=== PATIENT | male | born 1945 | race African-American/Black ===

== ENCOUNTER 2017-04-15 17:57 | Inpatient (IN) | payer MEDICARE ==
[2017-04-15 19:13] LABS: HEMATOCRIT 40.7 % (37.9-51.0); HEMOGLOBIN 13.3 g/dL (13.5-17.0); HGB HCT DIFFERENCE -0.8; MEAN CORPUSCULAR HGB CONC 32.6 g/dL (32.0-36.0); MEAN CORPUSCULAR VOLUME 89 fl (80-97); RED BLOOD COUNT 4.57 10^6/uL (4.35-5.55); RED CELL DISTRIBUTION WIDTH 15.2 % (11.5-14.0); WHITE BLOOD COUNT 4.6 10^3/uL (4.0-10.5)
[2017-04-15 19:30] LABS: ALANINE AMINOTRANSFERASE 30 U/L (21-72); ALBUMIN 4.1 g/dL (3.5-5.0); ALKALINE PHOSPHATASE 73 U/L (38-126); ANION GAP 14 (5-19); ASPARTATE AMINO TRANSFERASE 36 U/L (17-59); BILIRUBIN,DIRECT 0.4 mg/dL (0.0-0.4); BILIRUBIN,TOTAL 0.5 mg/dL (0.2-1.3); BLOOD UREA NITROGEN 21 mg/dL (7-20); CALCIUM 8.9 mg/dL (8.4-10.2); CARBON DIOXIDE 24 mmol/L (22-30); CHLORIDE 101 mmol/L (98-107); CREATININE RESULT 1.85 mg/dL (0.52-1.25); GLUCOSE 110 mg/dL (75-110); POTASSIUM 4.5 mmol/L (3.6-5.0); SODIUM 138.8 mmol/L (137-145); TOTAL PROTEIN 8.2 g/dL (6.3-8.2)
[2017-04-15] MEDS: IPRATROPIUM/ALBUTEROL 0.5-2.5 MG/3 ML AMPUL NEB SCH ×2 (20:33→22:10)
[2017-04-15] MEDS ORDERED: GLUCAGON,HUMAN RECOMB 1 MG INJ IM PRN ×2 (20:54)
[2017-04-15] MEDS ORDERED: DEXTROSE 40% GEL 15 GM TUBE PO PRN ×4 (20:54)
[2017-04-15] MEDS ORDERED: DEXTROSE 50%-WATER 25 GM/50 ML DISP.SYRIN IV PRN ×4 (20:54)
--- NOTE | 2017-04-15 21:47 | RADIOLOGY REPORT (SQ) ---
EXAM DESCRIPTION: CT CHEST WITHOUT COMPLETED DATE/TIME: 04/15/2017 9:33 pm REASON FOR STUDY: ACUTE HYPOXEMIC COMPARISON: No recent chest x-ray. 07/03/2015 TECHNIQUE: CT scan performed of the chest without intravenous contrast. Images reviewed with lung, soft tissue and bone windows. Reconstructed coronal and sagittal MPR images reviewed. All images st ored on PACS. All CT scanners at this facility use dose modulation, iterative reconstruction, and/or weight based d osing when appropriate to reduce radiation dose to as low as reasonably achievable (ALARA). [facility]: Dose Right [facility]: CareDose [facility]: Dose Right [facility]: Teradose 4D [facility]: [employer] RADIATION DOSE: Up-to-date CT equipment and radiation dose reduction techniques were employed. CTDIv ol: 19.0 mGy. DLP: 771 mGy-cm. mGy. LIMITATIONS: No technical limitations. FINDINGS: LUNGS AND PLEURA: Bullous emphysema. No opacities. No effusions. HILAR AND MEDIASTINAL STRUCTURES: No identified masses or abnormal nodes. No obvious aneurysm. HEART AND VASCULAR STRUCTURES: No aneurysm. No pericardial effusion. UPPER ABDOMEN: Gallstones. THYROID AND OTHER SOFT TISSUES: No masses. No adenopathy. BONES: No significant finding. HARDWARE: None in the chest. OTHER: No other significant findings. IMPRESSION: Bullous emphysema. No acute findings. TECHNICAL DOCUMENTATION: JOB ID: [id number] Quality ID # [id number]: Final reports with documentation of one or more dose reduction techniques (e.g., Au tomated exposure control, adjustment of the mA and/or kV according to patient size, use of iterative reconstruction technique) 2010 [employer]- All Rights Reserved
[2017-04-15] MEDS ORDERED: CEFEPIME HCL 1 GM in DEXTROSE 5%-WATER 50 ML IV ONE (22:00)
[2017-04-15 22:04] LABS: PARTIAL THROMBOPLASTIN TIME 27.1 SEC (23.5-35.8); PROTHROMBIN TIME 13.3 SEC (11.4-15.4)
[2017-04-15 22:19] LABS: ARTERIAL BLOOD BASE EXCESS 0.1 mmol/L; ARTERIAL BLOOD O2 SATURATION 96.6 % (94-98)
[2017-04-15] MEDS: HEPARIN SOD (PORCINE) 5,000 UNIT/ML 1 ML SYRINGE SUBCUT SCH (23:04)
[2017-04-15] MEDS: NORMAL SALINE 1000 ML 1,000 ML IV PRN (23:12)
[2017-04-15] MEDS ORDERED: METHYLPREDNISOLONE INJ 125 MG/2 ML SDV IV ONE (23:30)
[2017-04-16] MEDS: IPRATROPIUM/ALBUTEROL 0.5-2.5 MG/3 ML AMPUL NEB SCH ×9 (00:14→16:02)
[2017-04-16 03:57] LABS: APPEARANCE,URINE CLEAR; BILIRUBIN,URINE NEGATIVE (NEGATIVE); GLUCOSE, URINE NEGATIVE (NEGATIVE); KETONES,URINE NEGATIVE (NEGATIVE); LEUKOCYTE ESTERASE,URINE NEGATIVE (NEGATIVE); NITRITE,URINE NEGATIVE (NEGATIVE); PROTEIN,URINE NEGATIVE (NEGATIVE); URINE SPECIFIC GRAVITY 1.013; UROBILINOGEN,URINE NEGATIVE mg/dL (<2.0)
[2017-04-16] MEDS: HEPARIN SOD (PORCINE) 5,000 UNIT/ML 1 ML SYRINGE SUBCUT SCH ×3 (05:43→21:57)
[2017-04-16] MEDS: METHYLPREDNISOLONE INJ 125 MG/2 ML SDV IV SCH ×3 (05:43→21:52)
--- NOTE | 2017-04-16 08:44 | PDOC H&P ---
History of Present Illness Admission Date/PCP: 04/15/17 17:57 FLAQUITO LOCKE MD History of Present Illness: LORRAINE MAHAN is a 72 year old man, He came to the office for evaluation of shortness of breath, wheezing, cough. He was seen and evaluated in the in the office. The oxygen saturation was 86% on the digital pulse oximetry. The blood gas on FiO2 of 2 L, PO2 was 89.[address] chest was done , it showed bullous emphysema. Patient continued to smoke cigarettes despite COPD, he has multiple comorbid conditions including type 2 diabetes mellitus, chronic kidney disease stage III. Past Medical History Cardiac Medical History: Reports: Coronary Artery Disease, Hypertension Pulmonary Medical History: Reports: Chronic Obstructive Pulmonary Disease (COPD) Endocrine Medical History: Reports: Diabetes Mellitus Type 2 Social History Smoking Status: Current Every Day Smoker Cigarettes Packs Per Day: 2 Number of Years Smokin Last Time Smoked: 04/11/17 Frequency of Alcohol Use: None Hx Recreational Drug Use: No Drugs: None Hx Prescription Drug Abuse: No Family History Family History: Reviewed & Not Pertinent Parental Family History Reviewed: Yes Children Family History Reviewed: Yes Sibling(s) Family History Reviewed.: Yes Medication/Allergy Allergies/Adverse Reactions: No Known Allergies Allergy (Verified 07/03/15 10:19) Review of Systems Constitutional: PRESENT: headache(s) Eyes: ABSENT: visual disturbances Ears: ABSENT: hearing changes Cardiovascular: PRESENT: chest pain Respiratory: PRESENT: cough Gastrointestinal: ABSENT: abdominal pain, constipation, diarrhea, hematemesis, hematochezia, nausea, vomiting Genitourinary: ABSENT: dysuria, hematuria Musculoskeletal: ABSENT: joint swelling Integumentary: ABSENT: rash, wounds Neurological: ABSENT: abnormal gait, abnormal speech, confusion, dizziness, focal weakness, syncope Psychiatric: ABSENT: anxiety, depression, homidical ideation, suicidal ideation Endocrine: ABSENT: cold intolerance, heat intolerance, menstrual abnormalities, polydipsia, polyuria Hematologic/Lymphatic: ABSENT: easy bleeding, easy bruising, lymphadenopathy Physical Exam Vital Signs: Temp Pulse Resp BP Pulse Ox 98.5 F 82 18 138/66 H 88 L 04/16/17 07:22 04/16/17 08:01 04/16/17 08:01 04/16/17 07:22 04/16/17 08:01 Intake & Output 0704/16/17 04/17/17 06:59 06:59 06:59 Intake Total 890 Output Total 200 Balance 690 Weight 103.5 kg General appearance: PRESENT: severe distress Head exam: PRESENT: atraumatic, normocephalic Eye exam: PRESENT: PERRLA Ear exam: PRESENT: normal external ear exam Mouth exam: PRESENT: moist, tongue midline Neck exam: PRESENT: full ROM Respiratory exam: PRESENT: wheezes Cardiovascular exam: PRESENT: RRR Vascular exam: PRESENT: normal capillary refill GI/Abdominal exam: PRESENT: normal bowel sounds, soft Rectal exam: PRESENT: deferred Neurological exam: PRESENT: alert, awake, oriented to person, oriented to place , oriented to time, oriented to situation, CN II-XII grossly intact Psychiatric exam: PRESENT: appropriate affect, normal mood Skin exam: PRESENT: dry, intact, warm Results Laboratory Results: 04/15/17 19:00 04/15/17 19:00 04/15/17 04/15/17 04/15/17 19:00 19:00 19:10 WBC 4.6 RBC 4.57 Hgb 13.3 L Hct 40.7 MCV 89 MCH 29.0 MCHC 32.6 RDW 15.2 H Plt Count 181 Carbonic Acid 1.34 HCO3/H2CO3 Ratio 19:1 ABG pH 7.38 ABG pCO2 44.4 ABG pO2 89.1 ABG HCO3 25.6 ABG O2 Saturation 96.6 ABG Base Excess 0.1 FiO2 2L Sodium 138.8 Potassium 4.5 Chloride 101 Carbon Dioxide 24 Anion Gap 14 BUN 21 H Creatinine 1.85 H Est GFR ( Amer) 43 L Est GFR (Non-Af Amer) 36 L Glucose 110 Calcium 8.9 Total Bilirubin 0.5 AST 36 ALT 30 Alkaline Phosphatase 73 Total Protein 8.2 Albumin 4.1 Urine Color Urine Appearance Urine pH Ur Specific [place] Urine Protein Urine Glucose (UA) Urine Ketones Urine Blood Urine Nitrite Ur Leukocyte Esterase Urine WBC (Auto) Urine RBC (Auto) 04/16/17 03:35 WBC RBC Hgb Hct MCV MCH MCHC RDW Plt Count Carbonic Acid HCO3/H2CO3 Ratio ABG pH ABG pCO2 ABG pO2 ABG HCO3 ABG O2 Saturation ABG Base Excess FiO2 Sodium Potassium Chloride Carbon Dioxide Anion Gap BUN Creatinine Est GFR ( Amer) Est GFR (Non-Af Amer) Glucose Calcium Total Bilirubin AST ALT Alkaline Phosphatase Total Protein Albumin Urine Color YELLOW Urine Appearance CLEAR Urine pH 5.0 Ur Specific [place] 1.013 Urine Protein NEGATIVE Urine Glucose (UA) NEGATIVE Urine Ketones NEGATIVE Urine Blood NEGATIVE Urine Nitrite NEGATIVE Ur Leukocyte Esterase NEGATIVE Urine WBC (Auto) 0 Urine RBC (Auto) 0 Impressions: Chest CT 04/15/17 00:00 IMPRESSION: Bullous emphysema. No acute findings. Assessment & Plan - Diagnosis (1) Acute hypoxemic respiratory failure Is this a current diagnosis for this admission?: YesPlan: Patient does not presently require noninvasive positive pressure ventilation, he is presently on oxygen via nasal cannula at 2 L/min this seems to maintain adequate oxygenation (2) Chronic obstructive pulmonary disease with (acute) exacerbation Is this a current diagnosis for this admission?: YesPlan: He has COPD with acute exacerbation, CT scan did not suggest any acute infiltrate to suggest pneumonia, he be treated with IV Solu-Medrol, bronchodilators with DuoNeb every 2 hours, antibiotic (3) Chronic kidney disease, stage 3 Is this a current diagnosis for this admission?: Yes (4) Diabetes mellitus Qualifiers: Diabetes mellitus type: type 2 Diabetes mellitus complication status: with kidney complications Diabetes mellitus complication detail: with microalbuminuria Diabetes mellitus terminal gauger supervisor insulin use: without assisted use Qualified Code(s): E11.29 - Type 2 diabetes mellitus with other diabetic kidney complication; R80.9 - Proteinuria, unspecified Is this a current diagnosis for this admission?: Yes
[2017-04-16] MEDS: INSULIN LISPRO 100 UNIT/ML 3 ML VIAL SUBCUT PRN ×3 (09:52→22:20)
[2017-04-16] MEDS ORDERED: (PENDING PHARMACY ID) (Linagliptin [Tradjenta] 5 MG) PO SCH (10:00)
[2017-04-16] MEDS ORDERED: SIMVASTATIN 40 MG TABLET PO SCH (10:00)
[2017-04-16] MEDS ORDERED: (PENDING PHARMACY ID) (Lisinopril/Hydrochlorothiazide [Zestoretic 20-25 Mg Tablet] 1 TAB) PO SCH (10:00)
[2017-04-16] MEDS: LISINOPRIL 10 MG TABLET PO SCH (10:37)
[2017-04-16] MEDS: ASPIRIN 81 MG TABLET, ENT COATED PO SCH (10:38)
[2017-04-16] MEDS: METOPROLOL TARTRATE 50 MG TABLET PO SCH ×2 (10:38→21:52)
[2017-04-16] MEDS: NICOTINE 21 MG/24 HR PATCH.TD24 TD PRN (10:39)
[2017-04-16] MEDS: HYDROCHLOROTHIAZIDE 25 MG TABLET PO SCH (10:39)
[2017-04-16] MEDS: TERBINAFINE HCL 250 MG TABLET PO SCH (10:39)
[2017-04-16] MEDS: SITAGLIPTIN PHOSPHATE 50 MG TABLET PO SCH (10:39)
[2017-04-16] MEDS: CEFEPIME HCL 1 GM in DEXTROSE 5%-WATER 50 ML IV SCH (10:40)
[2017-04-16] MEDS ORDERED: LEVOFLOXACIN 750 MG/D5W RTU 750 MG/150 ML RTUPB IV SCH (12:00)
--- NOTE | 2017-04-16 12:52 | EKG REPORT ---
SEVERITY:- OTHERWISE NORMAL ECG - SINUS RHYTHM BORDERLINE RIGHT AXIS DEVIATION : Confirmed by: Sandi Acosta MD 16-Apr-2017 12:51:36
[2017-04-16 13:01] LABS: ABSOLUTE LYMPHOCYTES (AUTO) 0.4 10^3/uL (0.5-4.7); ABSOLUTE MONOCYTES (AUTO) 0.1 10^3/uL (0.1-1.4); ABSOLUTE NEUT (AUTO) 3.1 10^3/uL (1.7-8.2); BASOPHILS % (AUTO) 0.4 % (0-2); HEMATOCRIT 37.7 % (37.9-51.0); HEMOGLOBIN 12.5 g/dL (13.5-17.0); HGB HCT DIFFERENCE -0.2; LYMPHOCYTES % (AUTO) 10.5 % (13-45); MEAN CORPUSCULAR HEMOGLOBIN 29.2 pg (27.0-33.4); MEAN CORPUSCULAR HGB CONC 33.2 g/dL (32.0-36.0); MEAN CORPUSCULAR VOLUME 88 fl (80-97); MONOCYTES % (AUTO) 2.2 % (3-13); RED BLOOD COUNT 4.29 10^6/uL (4.35-5.55); RED CELL DISTRIBUTION WIDTH 15.3 % (11.5-14.0); SEGMENTED NEUTROPHILS % (AUTO) 86.9 % (42-78); WHITE BLOOD COUNT 3.6 10^3/uL (4.0-10.5)
[2017-04-16 13:13] LABS: ALANINE AMINOTRANSFERASE 29 U/L (21-72); ALBUMIN 3.7 g/dL (3.5-5.0); ALKALINE PHOSPHATASE 59 U/L (38-126); ANION GAP 15 (5-19); ASPARTATE AMINO TRANSFERASE 32 U/L (17-59); BILIRUBIN,DIRECT 0.3 mg/dL (0.0-0.4); BILIRUBIN,TOTAL 0.3 mg/dL (0.2-1.3); BLOOD UREA NITROGEN 22 mg/dL (7-20); CALCIUM 8.6 mg/dL (8.4-10.2); CARBON DIOXIDE 22 mmol/L (22-30); CHLORIDE 101 mmol/L (98-107); CREATININE RESULT 1.71 mg/dL (0.52-1.25); GLUCOSE 232 mg/dL (75-110); POTASSIUM 4.4 mmol/L (3.6-5.0); SODIUM 137.5 mmol/L (137-145); TOTAL PROTEIN 7.6 g/dL (6.3-8.2)
[2017-04-16] MEDS: NORMAL SALINE 1000 ML 1,000 ML IV PRN (14:42)
--- NOTE | 2017-04-16 17:59 | PDOC PROGRESS REPORT ---
Subjective Progress Note for:: 04/16/17 Subjective:: Patient was seen by the bedside, he was admitted yesterday for management of acute hypoxemic respiratory failure due to COPD exacerbation. Patient is still very symptomatic with audible wheeze with unaided ears. Patient is expected to stay more than 2 midnight he will require continuous uninterrupted intravenous Solu-Medrol for 72 hours. He has multiple comorbid conditions including chronic kidney disease stage 3, severe bullous emphysema, obesity with body mass index 36.8, tobacco abuse and sedentary lifestyle. He is also on intravenous antibiotic, cefepime and Levaquin because he was coughing up yellow sputum. It will be on unwise to admit this patient observation, he has the risks to progress rapidly to fulminant respiratory failure requiring mechanical ventilation. Physical Exam Vital Signs: Temp Pulse Resp BP Pulse Ox 98.6 F 78 20 114/61 100 04/16/17 15:49 04/16/17 16:02 04/16/17 16:02 04/16/17 15:49 04/16/17 16:02 Intake & Output 04/15/17 04/16/17 04/17/17 06:59 06:59 06:59 Intake Total 890 237 Output Total 200 200 Balance 690 37 Weight 103.5 kg General appearance: PRESENT: mild distress Eye exam: PRESENT: PERRLA Respiratory exam: PRESENT: retraction, tachypnea, wheezes Cardiovascular exam: PRESENT: +S1, +S2 GI/Abdominal exam: PRESENT: soft Neurological exam: PRESENT: alert, CN II-XII grossly intact Results Laboratory Results: 04/16/17 12:31 04/16/17 12:31 04/15/17 04/15/17 04/15/17 19:00 19:00 19:10 WBC 4.6 RBC 4.57 Hgb 13.3 L Hct 40.7 MCV 89 MCH 29.0 MCHC 32.6 RDW 15.2 H Plt Count 181 Seg Neutrophils % Lymphocytes % Monocytes % Eosinophils % Basophils % Absolute Neutrophils Absolute Lymphocytes Absolute Monocytes Absolute Eosinophils Absolute Basophils Carbonic Acid 1.34 HCO3/H2CO3 Ratio 19:1 ABG pH 7.38 ABG pCO2 44.4 ABG pO2 89.1 ABG HCO3 25.6 ABG O2 Saturation 96.6 ABG Base Excess 0.1 FiO2 2L Sodium 138.8 Potassium 4.5 Chloride 101 Carbon Dioxide 24 Anion Gap 14 BUN 21 H Creatinine 1.85 H Est GFR ( Amer) 43 L Est GFR (Non-Af Amer) 36 L Glucose 110 Calcium 8.9 Total Bilirubin 0.5 AST 36 ALT 30 Alkaline Phosphatase 73 Total Protein 8.2 Albumin 4.1 Urine Color Urine Appearance Urine pH Ur Specific [place] Urine Protein Urine Glucose (UA) Urine Ketones Urine Blood Urine Nitrite Ur Leukocyte Esterase Urine WBC (Auto) Urine RBC (Auto) 04/16/17 04/16/17 04/16/17 03:35 12:31 12:31 WBC 3.6 L RBC 4.29 L Hgb 12.5 L Hct 37.7 L MCV 88 MCH 29.2 MCHC 33.2 RDW 15.3 H Plt Count 174 Seg Neutrophils % 86.9 H Lymphocytes % 10.5 L Monocytes % 2.2 L Eosinophils % 0.0 Basophils % 0.4 Absolute Neutrophils 3.1 Absolute Lymphocytes 0.4 L Absolute Monocytes 0.1 Absolute Eosinophils 0.0 Absolute Basophils 0.0 Carbonic Acid HCO3/H2CO3 Ratio ABG pH ABG pCO2 ABG pO2 ABG HCO3 ABG O2 Saturation ABG Base Excess FiO2 Sodium 137.5 Potassium 4.4 Chloride 101 Carbon Dioxide 22 Anion Gap 15 BUN 22 H Creatinine 1.71 H Est GFR ( Amer) 48 L Est GFR (Non-Af Amer) 39 L Glucose 232 H Calcium 8.6 Total Bilirubin 0.3 AST 32 ALT 29 Alkaline Phosphatase 59 Total Protein 7.6 Albumin 3.7 Urine Color YELLOW Urine Appearance CLEAR Urine pH 5.0 Ur Specific [place] 1.013 Urine Protein NEGATIVE Urine Glucose (UA) NEGATIVE Urine Ketones NEGATIVE Urine Blood NEGATIVE Urine Nitrite NEGATIVE Ur Leukocyte Esterase NEGATIVE Urine WBC (Auto) 0 Urine RBC (Auto) 0 Impressions: Chest CT 04/15/17 00:00 IMPRESSION: Bullous emphysema. No acute findings. Assessment & Plan - Diagnosis (1) Acute hypoxemic respiratory failure Is this a current diagnosis for this admission?: YesPlan: He will continue present oxygen therapy via nasal cannula (2) Chronic obstructive pulmonary disease with (acute) exacerbation Is this a current diagnosis for this admission?: YesPlan: We will continue present treatment with IV antibiotic, bronchodilators. (3) Chronic kidney disease, stage 3 Is this a current diagnosis for this admission?: Yes (4) Diabetes mellitus Qualifiers: Diabetes mellitus type: type 2 Diabetes mellitus complication status: with kidney complications Diabetes mellitus complication detail: with microalbuminuria Diabetes mellitus residential insulin use: without residential use Qualified Code(s): E11.29 - Type 2 diabetes mellitus with other diabetic kidney complication; R80.9 - Proteinuria, unspecified; Z79.4 - detention (current) use of insulin Is this a current diagnosis for this admission?: Yes
[2017-04-16] MEDS: SIMVASTATIN 40 MG TABLET PO SCH (21:52)
[2017-04-17] MEDS: IPRATROPIUM/ALBUTEROL 0.5-2.5 MG/3 ML AMPUL NEB PRN ×4 (00:08→23:15)
[2017-04-17] MEDS: METHYLPREDNISOLONE INJ 125 MG/2 ML SDV IV SCH ×3 (05:21→22:32)
[2017-04-17] MEDS: HEPARIN SOD (PORCINE) 5,000 UNIT/ML 1 ML SYRINGE SUBCUT SCH ×3 (05:21→23:17)
[2017-04-17] MEDS: NORMAL SALINE 1000 ML 1,000 ML IV PRN ×2 (05:22→20:06)
[2017-04-17 06:45] LABS: ABSOLUTE MONOCYTES (AUTO) 0.5 10^3/uL (0.1-1.4); ABSOLUTE NEUT (AUTO) 11.1 10^3/uL (1.7-8.2); BASOPHILS % (AUTO) 0.3 % (0-2); EOSINOPHILS % (AUTO) 0.1 % (0-6); HEMATOCRIT 36.7 % (37.9-51.0); HEMOGLOBIN 12.1 g/dL (13.5-17.0); HGB HCT DIFFERENCE -0.4; LYMPHOCYTES % (AUTO) 7.9 % (13-45); MEAN CORPUSCULAR HGB CONC 33.1 g/dL (32.0-36.0); MEAN CORPUSCULAR VOLUME 88 fl (80-97); MONOCYTES % (AUTO) 4.2 % (3-13); RED BLOOD COUNT 4.18 10^6/uL (4.35-5.55); RED CELL DISTRIBUTION WIDTH 14.9 % (11.5-14.0); SEGMENTED NEUTROPHILS % (AUTO) 87.5 % (42-78)
[2017-04-17 06:46] LABS: WHITE BLOOD COUNT 12.6 10^3/uL (4.0-10.5)
[2017-04-17 07:00] LABS: ALANINE AMINOTRANSFERASE 32 U/L (21-72); ALBUMIN 3.2 g/dL (3.5-5.0); ALKALINE PHOSPHATASE 53 U/L (38-126); ANION GAP 12 (5-19); ASPARTATE AMINO TRANSFERASE 37 U/L (17-59); BILIRUBIN,DIRECT 0.4 mg/dL (0.0-0.4); BILIRUBIN,TOTAL 0.4 mg/dL (0.2-1.3); BLOOD UREA NITROGEN 36 mg/dL (7-20); CALCIUM 8.3 mg/dL (8.4-10.2); CARBON DIOXIDE 21 mmol/L (22-30); CHLORIDE 105 mmol/L (98-107); CREATININE RESULT 2.02 mg/dL (0.52-1.25); GLUCOSE 174 mg/dL (75-110); POTASSIUM 4.9 mmol/L (3.6-5.0); SODIUM 137.6 mmol/L (137-145); TOTAL PROTEIN 6.7 g/dL (6.3-8.2)
[2017-04-17] MEDS: INSULIN LISPRO 100 UNIT/ML 3 ML VIAL SUBCUT PRN ×2 (08:13→13:36)
[2017-04-17] MEDS: ASPIRIN 81 MG TABLET, ENT COATED PO SCH (09:44)
[2017-04-17] MEDS: SITAGLIPTIN PHOSPHATE 50 MG TABLET PO SCH (09:44)
[2017-04-17] MEDS: CEFEPIME HCL 1 GM in DEXTROSE 5%-WATER 50 ML IV SCH (09:44)
[2017-04-17] MEDS: HYDROCHLOROTHIAZIDE 25 MG TABLET PO SCH (09:44)
[2017-04-17] MEDS: TERBINAFINE HCL 250 MG TABLET PO SCH (09:45)
[2017-04-17] MEDS: METOPROLOL TARTRATE 50 MG TABLET PO SCH ×2 (09:45→22:36)
[2017-04-17] MEDS: LISINOPRIL 10 MG TABLET PO SCH (09:46)
[2017-04-17] MEDS: NICOTINE 21 MG/24 HR PATCH.TD24 TD PRN (11:51)
[2017-04-17 19:21] LABS: ALANINE AMINOTRANSFERASE 36 U/L (21-72); ALBUMIN 3.4 g/dL (3.5-5.0); ALKALINE PHOSPHATASE 55 U/L (38-126); ANION GAP 8 (5-19); ASPARTATE AMINO TRANSFERASE 47 U/L (17-59); BILIRUBIN,DIRECT 0.3 mg/dL (0.0-0.4); BILIRUBIN,TOTAL 0.3 mg/dL (0.2-1.3); BLOOD UREA NITROGEN 42 mg/dL (7-20); CALCIUM 8.3 mg/dL (8.4-10.2); CARBON DIOXIDE 24 mmol/L (22-30); CHLORIDE 105 mmol/L (98-107); CREATININE RESULT 1.87 mg/dL (0.52-1.25); GLUCOSE 136 mg/dL (75-110); SODIUM 137.4 mmol/L (137-145); TOTAL PROTEIN 7.1 g/dL (6.3-8.2)
[2017-04-17 19:34] LABS: POTASSIUM 5.1 mmol/L (3.6-5.0)
--- NOTE | 2017-04-17 20:19 | PDOC PROGRESS REPORT ---
Subjective Progress Note for:: 04/17/17 Subjective:: Patient was seen by the bedside, a continuous IV Solu-Medrol patient is improving hopefully discharge him tomorrow on p.o. prednisone Physical Exam Vital Signs: Temp Pulse Resp BP Pulse Ox 98.3 F 64 24 H 142/63 H 93 04/17/17 16:09 04/17/17 19:00 04/17/17 16:09 04/17/17 16:09 04/17/17 16:09 Intake & Output 04/16/17 04/17/17 04/18/17 06:59 06:59 06:59 Intake Total 890 2594 2258 Output Total 200 950 625 Balance 690 1644 1633 Weight 103.5 kg 108.6 kg General appearance: PRESENT: mild distress Eye exam: PRESENT: PERRLA Respiratory exam: PRESENT: wheezes Cardiovascular exam: PRESENT: +S1, +S2 GI/Abdominal exam: PRESENT: soft Results Laboratory Results: 04/17/17 05:51 04/17/17 18:45 04/17/17 04/17/17 04/17/17 05:51 05:51 18:45 WBC 12.6 H D RBC 4.18 L Hgb 12.1 L Hct 36.7 L MCV 88 MCH 29.0 MCHC 33.1 RDW 14.9 H Plt Count 170 Seg Neutrophils % 87.5 H Lymphocytes % 7.9 L Monocytes % 4.2 Eosinophils % 0.1 Basophils % 0.3 Absolute Neutrophils 11.1 H Absolute Lymphocytes 1.0 Absolute Monocytes 0.5 Absolute Eosinophils 0.0 Absolute Basophils 0.0 Sodium 137.6 137.4 Potassium 4.9 5.1 H Chloride 105 105 Carbon Dioxide 21 L 24 Anion Gap 12 8 BUN 36 H 42 H Creatinine 2.02 H 1.87 H Est GFR ( Amer) 39 L 43 L Est GFR (Non-Af Amer) 32 L 35 L Glucose 174 H 136 H Calcium 8.3 L 8.3 L Total Bilirubin 0.4 0.3 AST 37 47 ALT 32 36 Alkaline Phosphatase 53 55 Total Protein 6.7 7.1 Albumin 3.2 L 3.4 L Impressions: Chest CT 04/15/17 00:00 IMPRESSION: Bullous emphysema. No acute findings. Assessment & Plan - Diagnosis (1) Acute hypoxemic respiratory failure Is this a current diagnosis for this admission?: Yes (2) Chronic obstructive pulmonary disease with (acute) exacerbation Is this a current diagnosis for this admission?: Yes (3) Chronic kidney disease, stage 3 Is this a current diagnosis for this admission?: Yes (4) Diabetes mellitus Qualifiers: Diabetes mellitus type: type 2 Diabetes mellitus complication status: with kidney complications Diabetes mellitus complication detail: with microalbuminuria Diabetes mellitus intermediate insulin use: without intermediate use Qualified Code(s): E11.29 - Type 2 diabetes mellitus with other diabetic kidney complication; R80.9 - Proteinuria, unspecified; Z79.4 - senior living (current) use of insulin Is this a current diagnosis for this admission?: Yes
[2017-04-17] MEDS: SIMVASTATIN 40 MG TABLET PO SCH (22:35)
[2017-04-18] MEDS: HEPARIN SOD (PORCINE) 5,000 UNIT/ML 1 ML SYRINGE SUBCUT SCH (06:29)
[2017-04-18] MEDS: METHYLPREDNISOLONE INJ 125 MG/2 ML SDV IV SCH (06:30)
[2017-04-18] MEDS: IPRATROPIUM/ALBUTEROL 0.5-2.5 MG/3 ML AMPUL NEB PRN (06:46)
[2017-04-18 08:00] VITALS: BP 125/50
[2017-04-18] MEDS: METOPROLOL TARTRATE 50 MG TABLET PO SCH (09:08)
[2017-04-18] MEDS: HYDROCHLOROTHIAZIDE 25 MG TABLET PO SCH (09:09)
[2017-04-18] MEDS: LISINOPRIL 10 MG TABLET PO SCH (09:09)
[2017-04-18] MEDS: SITAGLIPTIN PHOSPHATE 50 MG TABLET PO SCH (09:09)
[2017-04-18] MEDS: NICOTINE 21 MG/24 HR PATCH.TD24 TD PRN (09:10)
[2017-04-18] MEDS: ASPIRIN 81 MG TABLET, ENT COATED PO SCH (09:10)
[2017-04-18] MEDS: TERBINAFINE HCL 250 MG TABLET PO SCH (09:18)
--- NOTE | 2017-04-18 19:28 | PDOC DISCHARGE SUMMARY ---
General - Admit/Disc Date/PCP Admission Date/Primary Care Provider: 04/15/17 17:57 FLAQUITO LOCKE MD Discharge Date: 04/18/17 - Discharge Diagnosis (1) Acute hypoxemic respiratory failure Is this a current diagnosis for this admission?: Yes (2) Chronic obstructive pulmonary disease with (acute) exacerbation Is this a current diagnosis for this admission?: Yes (3) Chronic kidney disease, stage 3 Is this a current diagnosis for this admission?: Yes (4) Diabetes mellitus Is this a current diagnosis for this admission?: Yes - Additional Information Discharge Diet: Cardiac Discharge Activity: Activity As Tolerated Home Medications: Aspirin [Adult Low Dose Aspirin EC] 81 mg PO DAILY 04/16/17 Linagliptin [Tradjenta] 5 mg PO DAILY 04/16/17 Lisinopril/Hydrochlorothiazide [Zestoretic 20-25 mg Tablet] 1 tab PO DAILY 04/16 Metoprolol Tartrate [Lopressor 50 mg Tablet] 50 mg PO Q12 04/16/17 Simvastatin 40 mg PO DAILY 04/16/17 Terbinafine HCl [Lamisil 250 mg Tablet] 250 mg PO DAILY 04/16/17 Albuterol Sulfate [Proair HFA] 2 puff IH Q4 PRN #1 inhaler 04/17/17 Prednisone 20 mg PO DAILY #0 tablet 04/17/17 Umeclidinium Brm/Vilanterol Tr [Anoro Ellipta 62.5-25 Mcg INH] 1 each IH DAILY # 1 disk.w.dev 04/17/17 History of Present Illness History of Present Illness: LORRAINE MAHAN is a 72 year old man, He came to the office for evaluation of shortness of breath, wheezing, cough. He was seen and evaluated in the in the office. The oxygen saturation was 86% on the digital pulse oximetry. The blood gas on FiO2 of 2 L, PO2 was 89.[address] chest was done , it showed bullous emphysema. Patient continued to smoke cigarettes despite COPD, he has multiple comorbid conditions including type 2 diabetes mellitus, chronic kidney disease stage III. Hospital Course Hospital Course: Patient was admitted for the management of acute hypoxemic respiratory failure due to COPD exacerbation. He was treated with intravenous Solu-Medrol 125 mg IV every 8 hours, IV antibiotic intravenous cefepime and intravenous Levaquin and also bronchodilators with DuoNeb initially every 2 hours for the first 24 hours subsequently transitioned to every 4 hours. There was associated acute kidney injury most likely due to prerenal acute kidney failure this was treated with IV fluid. Patient is discharged home today Physical Exam Vital Signs: Temp Pulse Resp BP Pulse Ox 98.3 F 61 23 H 125/50 L 97 04/18/17 09:51 04/18/17 09:51 04/18/17 09:51 04/18/17 07:48 04/18/17 09:51 Intake & Output 04/17/17 04/18/17 04/19/17 06:59 06:59 06:59 Intake Total 2594 3388 Output Total 969 1675 Balance 1644 1713 Weight 108.6 kg 103.8 kg General appearance: PRESENT: no acute distress Eye exam: PRESENT: PERRLA Respiratory exam: PRESENT: rales Cardiovascular exam: PRESENT: +S1, +S2 GI/Abdominal exam: PRESENT: soft Neurological exam: PRESENT: alert, CN II-XII grossly intact Results Laboratory Results: 04/17/17 05:51 04/17/17 18:45 04/17/17 18:45 Sodium 137.4 Potassium 5.1 H Chloride 105 Carbon Dioxide 24 Anion Gap 8 BUN 42 H Creatinine 1.87 H Est GFR ( Amer) 43 L Est GFR (Non-Af Amer) 35 L Glucose 136 H Calcium 8.3 L Total Bilirubin 0.3 AST 47 ALT 36 Alkaline Phosphatase 55 Total Protein 7.1 Albumin 3.4 L 04/16/17 03:35 Clean Catch Midstream Urine Culture - Final NO GROWTH 2 DAYS Impressions: Chest CT 04/15/17 00:00 IMPRESSION: Bullous emphysema. No acute findings.
== END 2017-04-18 10:10 | disposition home or self-care (01) | DRG 190 ==
LOC: 3W 17:57
PROVIDERS: ADMIT Internal Medicine; ATTEND Internal Medicine
PROC: 3E0F73Z Introduction of Anti-inflammatory into Respiratory Tract, Via Natural or Artificial Opening (ICD-10-PCS; principal; 2017-04-15)
DX: J44.1 Chronic obstructive pulmonary disease with (acute) exacerbation (principal); J96.01 Acute respiratory failure with hypoxia; N17.9 Acute kidney failure, unspecified; E11.22 Type 2 diabetes mellitus with diabetic chronic kidney disease; I12.9 Hypertensive chronic kidney disease with stage 1 through stage 4 chronic kidney disease, or unspecified chronic kidney disease; N18.3 Chronic kidney disease, stage 3 (moderate); I25.10 Atherosclerotic heart disease of native coronary artery without angina pectoris; F17.210 Nicotine dependence, cigarettes, uncomplicated; E66.9 Obesity, unspecified; Z79.82 Long term (current) use of aspirin; Z68.36 Body mass index [BMI] 36.0-36.9, adult; Z79.4 Long term (current) use of insulin; Z79.899 Other long term (current) drug therapy
CPT/HCPCS: 36415; 36600; 71250; 80048; 80053; 80076; 81001; 82803; 82962; 85025; 85027; 85610; 85730; 87040; 87086; 93005; 93010; J0692; J1644; J1815; J1956; J2930; J3490; J7030; J7620

== ENCOUNTER 2018-04-04 15:20 | Inpatient (IN) | payer MEDICARE ==
[2018-04-04 16:31] LABS: ABSOLUTE BASOPHILS # (AUTO) 0.1 10^3/uL (0.0-0.2); ABSOLUTE EOSINOPHILS # (AUTO) 0.3 10^3/uL (0.0-0.6); ABSOLUTE LYMPHOCYTES (AUTO) 2.1 10^3/uL (0.5-4.7); ABSOLUTE MONOCYTES (AUTO) 0.7 10^3/uL (0.1-1.4); ABSOLUTE NEUT (AUTO) 3.8 10^3/uL (1.7-8.2); BASOPHILS % (AUTO) 0.9 % (0-2); EOSINOPHILS % (AUTO) 4.4 % (0-6); HEMATOCRIT 35.8 % (37.9-51.0); HEMOGLOBIN 12.1 g/dL (13.5-17.0); MEAN CORPUSCULAR HEMOGLOBIN 29.5 pg (27.0-33.4); MEAN CORPUSCULAR HGB CONC 33.8 g/dL (32.0-36.0); MEAN CORPUSCULAR VOLUME 87 fl (80-97); MONOCYTES % (AUTO) 10.4 % (3-13); PLATELET COUNT 241 10^3/uL (150-450); RED BLOOD COUNT 4.11 10^6/uL (4.35-5.55); RED CELL DISTRIBUTION WIDTH 14.8 % (11.5-14.0); SEGMENTED NEUTROPHILS % (AUTO) 54.3 % (42-78); TOTAL CELLS COUNTED % (AUTO) 100 %
--- NOTE | 2018-04-04 16:36 | RADIOLOGY REPORT (SQ) ---
EXAM DESCRIPTION: CHEST SINGLE VIEW COMPLETED DATE/TIME: 04/04/2018 4:28 pm REASON FOR STUDY: ? pulmonary hypertension COMPARISON: CT 04/15/2017 chest x-ray 07/03/2015 EXAM PARAMETERS: NUMBER OF VIEWS: One view. TECHNIQUE: Single frontal radiographic view of the chest acquired. RADIATION DOSE: NA LIMITATIONS: None. FINDINGS: LUNGS AND PLEURA: No opacities, masses or pneumothorax. No pleural effusion. MEDIASTINUM AND HILAR STRUCTURES: No masses. Contour normal. HEART AND VASCULAR STRUCTURES: Heart size is borderline. No evidence of failure. BONES: No acute findings. HARDWARE: None in the chest. OTHER: No other significant finding. IMPRESSION: Borderline cardiomegaly without CHF. TECHNICAL DOCUMENTATION: JOB ID: [id number] [employer]- All Rights Reserved Reading location - IP/workstation name: [email or web address]
[2018-04-04 16:52] LABS: ALANINE AMINOTRANSFERASE 23 U/L (21-72); ALBUMIN 3.6 g/dL (3.5-5.0); ALKALINE PHOSPHATASE 68 U/L (38-126); ANION GAP 14 (5-19); ASPARTATE AMINO TRANSFERASE 21 U/L (17-59); BILIRUBIN,DIRECT 0.3 mg/dL (0.0-0.4); BILIRUBIN,TOTAL 0.5 mg/dL (0.2-1.3); BLOOD UREA NITROGEN 13 mg/dL (7-20); CALCIUM 9.4 mg/dL (8.4-10.2); CARBON DIOXIDE 26 mmol/L (22-30); CHLORIDE 104 mmol/L (98-107); CREATINE KINASE 146 U/L (55-170); GLUCOSE 62 mg/dL (75-110); POTASSIUM 4.1 mmol/L (3.6-5.0); TOTAL PROTEIN 6.9 g/dL (6.3-8.2)
[2018-04-04 17:02] LABS: CREATINE KINASE MB 1.48 ng/mL (<4.55); NT PRO BNP 85 pg/mL (5-900)
[2018-04-04 17:04] LABS: TROPONIN I < 0.012 ng/mL
--- NOTE | 2018-04-04 19:40 | EKG REPORT ---
SEVERITY:- NORMAL ECG - SINUS RHYTHM : Confirmed by: Sandi Acosta MD 04-Apr-2018 19:39:10
[2018-04-04 21:06] LABS: APPEARANCE,URINE CLEAR; BILIRUBIN,URINE NEGATIVE (NEGATIVE); COLOR,URINE YELLOW; GLUCOSE, URINE NEGATIVE (NEGATIVE); KETONES,URINE NEGATIVE (NEGATIVE); LEUKOCYTE ESTERASE,URINE NEGATIVE (NEGATIVE); NITRITE,URINE NEGATIVE (NEGATIVE); PROTEIN,URINE NEGATIVE (NEGATIVE); URINE SPECIFIC GRAVITY 1.011; UROBILINOGEN,URINE NEGATIVE mg/dL (<2.0)
[2018-04-04] MEDS ORDERED: (PENDING PHARMACY ID) (Lisinopril/Hydrochlorothiazide [Zestoretic 20-25 Mg Tablet] 1 TAB) PO SCH (21:15)
[2018-04-04] MEDS ORDERED: (PENDING PHARMACY ID) (Pramipexole Di-Hcl [Pramipexole Dihydrochloride] 0.125 MG) PO SCH (21:15)
[2018-04-04 21:25] LABS: UR PRO/CREAT RATIO RESULT 0.1 mg/mg (0.0-0.2); URINE CREATININE 101.9 mg/dL (22-328); URINE PROTEIN 10.8 mg/dL (<12)
[2018-04-04] MEDS: METOPROLOL TARTRATE 50 MG TABLET PO SCH (21:43)
[2018-04-04] MEDS: SIMVASTATIN 40 MG TABLET PO SCH (21:43)
[2018-04-04] MEDS ORDERED: LISINOPRIL 10 MG TABLET PO ONE (22:00)
[2018-04-04] MEDS ORDERED: HYDROCHLOROTHIAZIDE 25 MG TABLET PO ONE (22:00)
[2018-04-04] MEDS ORDERED: GLIMEPIRIDE 1 MG TABLET PO ONE (22:00)
[2018-04-04] MEDS ORDERED: PRAMIPEXOLE DI-HCL 0.25 MG TABLET PO ONE (22:00)
[2018-04-04] MEDS ORDERED: ASPIRIN 81 MG TABLET, ENT COATED PO ONE (22:00)
[2018-04-05 01:16] LABS: CREATINE KINASE MB 1.41 ng/mL (<4.55); TROPONIN I < 0.012 ng/mL
[2018-04-05] MEDS: GLIMEPIRIDE 1 MG TABLET PO SCH (08:21)
[2018-04-05 09:51] LABS: CREATINE KINASE MB 1.29 ng/mL (<4.55)
[2018-04-05 09:56] LABS: TROPONIN I < 0.012 ng/mL
[2018-04-05] MEDS: LISINOPRIL 10 MG TABLET PO SCH (10:45)
[2018-04-05] MEDS: ASPIRIN 81 MG TABLET, ENT COATED PO SCH (10:45)
[2018-04-05] MEDS: METOPROLOL TARTRATE 50 MG TABLET PO SCH ×2 (10:45→22:06)
[2018-04-05] MEDS: HYDROCHLOROTHIAZIDE 25 MG TABLET PO SCH (10:46)
[2018-04-05] MEDS: PRAMIPEXOLE DI-HCL 0.25 MG TABLET PO SCH (10:46)
[2018-04-05] MEDS ORDERED: NORMAL SALINE 250 ML with FUROSEMIDE 250 MG IV PRN ×4 (11:42→20:35)
--- NOTE | 2018-04-05 12:22 | RADIOLOGY REPORT (SQ) ---
EXAM DESCRIPTION: CT LT LOWER EXTREMITY WITHOUT COMPLETED DATE/TIME: 04/05/2018 12:11 pm REASON FOR STUDY: left knee pain/swelling COMPARISON: None. TECHNIQUE: Axial imaging performed through the left knee with reformatted coronal and sagittal imagi ng windowed for bone and soft tissues. Images saved to PACS. 3D IMAGING: Were 3D images as MIP, SSD, or volume rendering performed at the work station? No All CT scanners at this facility use dose modulation, iterative reconstruction, and/or weight based d osing when appropriate to reduce radiation dose to as low as reasonably achievable (ALARA). [facility]: Dose Right [facility]: CareDose [facility]: Dose Right [facility]: Teradose 4D [facility]: [employer] LIMITATIONS: None. RADIATION DOSE: CT Rad equipment meets quality standard of care and radiation dose reduction techniq ues were employed. CTDIvol: 4.1 mGy. DLP: 133 mGy-cm. mGy. FINDINGS: SOFT TISSUES: No obvious swelling or foreign body. BONES: No acute fracture. Our osteophytes. MINERALIZATION: Normal. OTHER: Joint effusion. IMPRESSION: Joint effusion. Mild degenerative changes. TECHNICAL DOCUMENTATION: JOB ID: [id number] Quality ID # [id number]: Final reports with documentation of one or more dose reduction techniques (e.g., Au tomated exposure control, adjustment of the mA and/or kV according to patient size, use of iterative reconstruction technique) 2010 [employer]- All Rights Reserved Reading location - IP/workstation name: [email or web address]
--- NOTE | 2018-04-05 18:37 | XCELERA REPORT ---
[address] [address] Transthoracic Echocardiogram Report Name: LORRAINE MAHAN Age: 72 yrs Gender: Male : 1945 Patient Status: In[facility] Study Date: 04/05/2018 02:17 PM Height: 67 in Weight: 250 lb BSA: 2.2 m2 Procedure: A two-dimensional transthoracic echocardiogram with color flow Doppler was performed. The study was technically difficult with many images being suboptimal in quality. Reason For Study: Pulmonary Hypertension History: Pulmonary Hypertension. Ordering Physician: FLAQUITO LOCKE Performed By: Woo Bridges Interpretation Summary The left ventricle is normal in size. There is normal left ventricular wall thickness. Left ventricular systolic function is normal. LV EF is 65% Doppler measurements suggest impaired left ventricular relaxation, which is associated with grade I/IV or mild diastolic dysfunction The left ventricular wall motion is normal. There is no thrombus. There is no ventricular septal defect visualized. The right ventricle is grossly normal size. The right ventricle is not well visualized secondary to technical limitations The right atrium is normal. The left atrial size is normal. The interatrial septum is intact with no evidence for an atrial septal defect. There is no evidence of mitral valve prolapse. There is no vegetation seen on the mitral valve. There is no mitral valve stenosis. There is no mitral regurgitation noted. There is no aortic valvular vegetation. There is no aortic valve stenosis There is no LVOT obstruction. There is Aortic Sclerosis without Aortic Stenosis. No aortic regurgitation is present. There is no tricuspid stenosis. There is a trace amount of tricuspid regurgitation Unable to calculate RVSP due to insufficient TR jet. There is no pulmonic valvular stenosis. There is no pulmonic valvular regurgitation. The aortic root is not well visualized but is probably normal size. There is no pericardial effusion. MMode/2D Measurements & Calculations RVDd: 3.3 cm LVIDd: 4.6 cm FS: 36.3 % Ao root diam: 2.8 cm IVSd: 0.76 cm LVIDs: 3.0 cm EDV(Teich): 99.2 ml LVPWd: 0.98 cmESV(Teich): 33.6 ml Ao root area: 6.2 cm2 EF(Teich): 66.1 % LA dimension: 3.8 cm LVOT diam: 2.1 cm LVOT area: 3.4 cm2 Doppler Measurements & Calculations MV E max rip: MV P1/2t max rip: Ao V2 max: LV V1 max P.5 cm/sec 82.0 cm/sec 131.3 cm/sec 5.4 mmHg MV A max rip: MV P1/2t: 89.8 msec Ao max PG: LV V1 max: 110.1 cm/sec MVA(P1/2t): 2.5 cm2 6.9 mmHg 116.5 cm/sec MV E/A: 0.71 MV dec slope: SUSAN(V,D): 3.0 cm2 267.7 cm/sec2 MV dec time: 0.19 sec PA V2 max: 111.1 cm/sec PA max P.9 mmHg Left Ventricle The left ventricle is normal in size. There is normal left ventricular wall thickness. Left ventricular systolic function is normal. LV EF is 65%. Doppler measurements suggest impaired left ventricular relaxation, which is associated with grade I/IV or mild diastolic dysfunction. The left ventricular wall motion is normal. There is no thrombus. There is no ventricular septal defect visualized. Right Ventricle The right ventricle is grossly normal size. The right ventricle is not well visualized secondary to technical limitations. Atria The right atrium is normal. The left atrial size is normal. The interatrial septum is intact with no evidence for an atrial septal defect. Mitral Valve There is mild mitral annular calcification. There is no evidence of mitral valve prolapse. There is no vegetation seen on the mitral valve. There is no mitral valve stenosis. There is no mitral regurgitation noted. Aortic Valve There is no aortic valvular vegetation. There is no aortic valve stenosis. There is no LVOT obstruction. There is Aortic Sclerosis without Aortic Stenosis. No aortic regurgitation is present. Tricuspid Valve There is no tricuspid stenosis. There is a trace amount of tricuspid regurgitation. Unable to calculate RVSP due to insufficient TR jet. Pulmonic Valve There is no pulmonic valvular stenosis. There is no pulmonic valvular regurgitation. Great Vessels The aortic root is not well visualized but is probably normal size. Effusions There is no pericardial effusion. : FLAQUITO LOCKE > Sandi Acosta
--- NOTE | 2018-04-05 20:34 | PDOC H&P ---
History of Present Illness Admission Date/PCP: 04/04/18 15:20 FLAQUITO LOCKE MD History of Present Illness: LORRAINE MAHAN is a 72 year old male, Patient was admitted for evaluation of lower extremity swelling and left knee arthropathy. He has underlining chronic obstructive pulmonary disease, chronic kidney disease, type 2 diabetes mellitus. Pulmonary hypertension was suspected as the etiology of the lower extremity edema, the urine protein creatinine ratio was normal, the liver function test was normal, a 2D echo was done today, showed preserved ejection fraction of left ventricle, the right ventricular systolic pressure could not be measured because of inadequate tricuspid regurgitation. Past Medical History Cardiac Medical History: Reports: Hypertension, Peripheral Vascular Disease Pulmonary Medical History: Reports: Chronic Obstructive Pulmonary Disease (COPD) Endocrine Medical History: Reports: Diabetes Mellitus Type 2 Renal/ Medical History: Reports: Chronic Kidney Disease, Other Musculoskeltal Medical History: Reports: Arthritis Hematology: Denies: Anemia Social History Smoking Status: Current Every Day Smoker Number of Years Smokin Frequency of Alcohol Use: None Hx Recreational Drug Use: No Drugs: None Hx Prescription Drug Abuse: No Family History Family History: Reviewed & Not Pertinent Parental Family History Reviewed: Yes Children Family History Reviewed: Yes Sibling(s) Family History Reviewed.: Yes Medication/Allergy Home Medications: Aspirin [Adult Low Dose Aspirin EC] 81 mg PO DAILY 04/16/17 Lisinopril/Hydrochlorothiazide [Zestoretic 20-25 mg Tablet] 1 tab PO DAILY 04/16 Metoprolol Tartrate [Lopressor 50 mg Tablet] 50 mg PO Q12 04/16/17 Simvastatin 40 mg PO DAILY 04/16/17 Glimepiride [Amaryl] 2 mg PO DAILY 04/04/18 Pramipexole Di-HCl [Pramipexole Dihydrochloride] 0.125 mg PO DAILY 04/04/18 Allergies/Adverse Reactions: No Known Allergies Allergy (Verified 07/03/15 10:19) Review of Systems Constitutional: ABSENT: chills, fever(s), headache(s), weight gain, weight loss Eyes: ABSENT: visual disturbances Ears: ABSENT: hearing changes Cardiovascular: ABSENT: chest pain, dyspnea on exertion, edema, orthropnea, palpitations Respiratory: ABSENT: cough, hemoptysis Gastrointestinal: ABSENT: abdominal pain, constipation, diarrhea, hematemesis, hematochezia, nausea, vomiting Genitourinary: ABSENT: dysuria, hematuria Musculoskeletal: PRESENT: joint swelling Integumentary: ABSENT: rash, wounds Neurological: ABSENT: abnormal gait, abnormal speech, confusion, dizziness, focal weakness, syncope Psychiatric: ABSENT: anxiety, depression, homidical ideation, suicidal ideation Endocrine: ABSENT: cold intolerance, heat intolerance, menstrual abnormalities, polydipsia, polyuria Hematologic/Lymphatic: ABSENT: easy bleeding, easy bruising, lymphadenopathy Physical Exam Vital Signs: Temp Pulse Resp BP Pulse Ox 99.1 F 76 18 140/65 H 95 04/05/18 15:15 04/05/18 19:00 04/05/18 15:15 04/05/18 15:15 04/05/18 15:15 Intake & Output 04/04/18 04/05/18 04/06/18 06:59 06:59 06:59 Intake Total 696 547 Output Total 600 700 Balance 96 -153 Weight 113.7 kg General appearance: PRESENT: no acute distress, well-developed, well-nourished Head exam: PRESENT: atraumatic, normocephalic Eye exam: PRESENT: PERRLA. ABSENT: scleral icterus Ear exam: PRESENT: normal external ear exam Mouth exam: PRESENT: moist, tongue midline Neck exam: PRESENT: full ROM Respiratory exam: PRESENT: prolonged expiratory phas Cardiovascular exam: PRESENT: RRR, +S1, +S2 Pulses: PRESENT: normal dorsalis pedis pul, +2 pedal pulses bilateral Vascular exam: PRESENT: normal capillary refill GI/Abdominal exam: PRESENT: normal bowel sounds, soft Rectal exam: PRESENT: deferred Extremities exam: PRESENT: pedal edema, other - Left knee arthropathy Neurological exam: PRESENT: alert, awake, oriented to person, oriented to place , oriented to time, oriented to situation, CN II-XII grossly intact Psychiatric exam: PRESENT: appropriate affect, normal mood Skin exam: PRESENT: dry, intact, warm Results Laboratory Results: 04/04/18 16:17 04/04/18 16:17 04/04/18 20:50 Urine Color YELLOW Urine Appearance CLEAR Urine pH 8.0 Ur Specific [place] 1.011 Urine Protein NEGATIVE Urine Glucose (UA) NEGATIVE Urine Ketones NEGATIVE Urine Blood NEGATIVE Urine Nitrite NEGATIVE Ur Leukocyte Esterase NEGATIVE Urine WBC (Auto) 1 Urine RBC (Auto) 0 04/04/18 04/04/1818 16:17 16:17 00:18 Creatine Kinase 146 127 CK-MB (CK-2) 1.48 Troponin I < 0.012 NT-Pro-B Natriuret Pep 85 04/05/18 04/05/18 04/05/18 00:18 08:50 08:50 Creatine Kinase 94 CK-MB (CK-2) 1.41 1.29 Troponin I < 0.012 < 0.012 NT-Pro-B Natriuret Pep Impressions: Chest X-Ray 04/04/18 00:00 IMPRESSION: Borderline cardiomegaly without CHF. Lower Extremity CT 04/05/18 00:00 IMPRESSION: Joint effusion. Mild degenerative changes. Assessment & Plan - Diagnosis (1) Bilateral lower extremity edema Is this a current diagnosis for this admission?: Yes Plan: This is most likely from pulmonary hypertension, the 2D echo was a poor quality study difficult to discern right ventricular systolic pressure, discuss case with Dr. Acosta, is suggested right heart catheterization to have measured pulmonary pressure (2) Effusion, left knee Is this a current diagnosis for this admission?: Yes Plan: Consultation obtained from orthopedics (3) Chronic obstructive pulmonary disease Qualifiers: COPD type: unspecified COPD Qualified Code(s): J44.9 - Chronic obstructive pulmonary disease, unspecified Is this a current diagnosis for this admission?: Yes (4) Chronic kidney disease, stage 3 Is this a current diagnosis for this admission?: Yes (5) Diabetes mellitus Qualifiers: Diabetes mellitus type: type 2 Diabetes mellitus assistant terminal manager insulin use: without halfway use Diabetes mellitus complication status: with kidney complications Diabetes mellitus complication detail: with microalbuminuria Qualified Code(s): E11.29 - Type 2 diabetes mellitus with other diabetic kidney complication Is this a current diagnosis for this admission?: Yes
[2018-04-05] MEDS: SIMVASTATIN 40 MG TABLET PO SCH (22:06)
[2018-04-06 05:38] LABS: ANION GAP 15 (5-19); BLOOD UREA NITROGEN 24 mg/dL (7-20); CALCIUM 9.5 mg/dL (8.4-10.2); CARBON DIOXIDE 25 mmol/L (22-30); CHLORIDE 100 mmol/L (98-107); GLUCOSE 100 mg/dL (75-110); POTASSIUM 4.7 mmol/L (3.6-5.0); SODIUM 140.1 mmol/L (137-145)
[2018-04-06 07:58] VITALS: BP 108/55
[2018-04-06 09:11] LABS: FREE T3 3.24 pg/mL (2.77-5.27); FREE T4 (FREE THYROXINE) 1.44 ng/dL (0.78-2.19)
[2018-04-06] MEDS: LISINOPRIL 10 MG TABLET PO SCH (09:15)
[2018-04-06] MEDS: PRAMIPEXOLE DI-HCL 0.25 MG TABLET PO SCH (09:16)
[2018-04-06] MEDS: HYDROCHLOROTHIAZIDE 25 MG TABLET PO SCH (09:16)
[2018-04-06] MEDS: METOPROLOL TARTRATE 50 MG TABLET PO SCH (09:16)
[2018-04-06] MEDS: GLIMEPIRIDE 1 MG TABLET PO SCH (09:16)
[2018-04-06] MEDS: ASPIRIN 81 MG TABLET, ENT COATED PO SCH (09:16)
[2018-04-06 09:24] LABS: THYROID STIMULATING HORMONE 1.49 uIU/mL (0.47-4.68)
--- NOTE | 2018-04-06 10:33 | PDOC CONSULTATION ---
History of Present Illness Admission Date/PCP: 04/04/18 15:20 FLAQUITO LOCKE MD Patient complains of: Left knee pain History of Present Illness: LORRAINE MAHAN is a 73 year old male presented to the hospital on 04/04/18 with lower extremity edema along with left knee pain. Patient states she has had chronic left knee pain but the swelling and pain increased this past Saturday. Denies fever chills or sweats. Does note since his admission the pain has improved. Current pain 11/02. Denies specific injury. Denies numbness or tingling. Past Medical History Cardiac Medical History: Reports: Hypertension, Peripheral Vascular Disease Pulmonary Medical History: Reports: Chronic Obstructive Pulmonary Disease (COPD) Endocrine Medical History: Reports: Diabetes Mellitus Type 2 Renal/ Medical History: Reports: Chronic Kidney Disease, Other Musculoskeltal Medical History: Reports: Arthritis Hematology: Denies: Anemia Social History Smoking Status: Current Every Day Smoker Number of Years Smokin Frequency of Alcohol Use: None Hx Recreational Drug Use: No Drugs: None Hx Prescription Drug Abuse: No Family History Family History: Reviewed & Not Pertinent Parental Family History Reviewed: No Children Family History Reviewed: No Sibling(s) Family History Reviewed.: No Medication/Allergy Home Medications: Aspirin [Adult Low Dose Aspirin EC] 81 mg PO DAILY 04/16/17 Lisinopril/Hydrochlorothiazide [Zestoretic 20-25 mg Tablet] 1 tab PO DAILY 04/16 Metoprolol Tartrate [Lopressor 50 mg Tablet] 50 mg PO Q12 04/16/17 Simvastatin 40 mg PO DAILY 04/16/17 Glimepiride [Amaryl] 2 mg PO DAILY 04/04/18 Pramipexole Di-HCl [Pramipexole Dihydrochloride] 0.125 mg PO DAILY 04/04/18 Allergies/Adverse Reactions: No Known Allergies Allergy (Verified 07/03/15 10:19) Review of Systems Constitutional: ABSENT: chills, fever(s), headache(s), weight gain, weight loss Eyes: ABSENT: visual disturbances Ears: ABSENT: hearing changes Cardiovascular: ABSENT: chest pain, dyspnea on exertion, edema, orthropnea, palpitations Respiratory: ABSENT: cough, hemoptysis Gastrointestinal: ABSENT: abdominal pain, constipation, diarrhea, hematemesis, hematochezia, nausea, vomiting Genitourinary: ABSENT: dysuria, hematuria Musculoskeletal: PRESENT: as per HPI Integumentary: ABSENT: rash, wounds Neurological: ABSENT: abnormal gait, abnormal speech, confusion, dizziness, focal weakness, syncope Psychiatric: ABSENT: anxiety, depression, homidical ideation, suicidal ideation Endocrine: ABSENT: cold intolerance, heat intolerance, menstrual abnormalities, polydipsia, polyuria Hematologic/Lymphatic: ABSENT: easy bleeding, easy bruising, lymphadenopathy Physical Exam Vital Signs: Temp Pulse Resp BP Pulse Ox 97.3 F 72 19 108/55 L 96 04/06/18 07:57 04/06/18 07:57 04/06/18 07:57 04/06/18 07:57 04/06/18 07:57 Intake & Output 04/05/18 04/06/18 04/07/18 06:59 06:59 06:59 Intake Total 696 1501 Output Total 600 2500 Balance 96 -999 Weight 113.7 kg General appearance: PRESENT: no acute distress, well-developed, well-nourished Head exam: PRESENT: atraumatic, normocephalic Eye exam: PRESENT: conjunctiva pink, EOMI, PERRLA. ABSENT: scleral icterus Ear exam: PRESENT: normal external ear exam Mouth exam: PRESENT: moist, tongue midline Neck exam: PRESENT: full ROM. ABSENT: carotid bruit, JVD, lymphadenopathy, thyromegaly Cardiovascular exam: PRESENT: RRR. ABSENT: diastolic murmur, rubs, systolic murmur Pulses: PRESENT: normal dorsalis pedis pul, +2 pedal pulses bilateral Vascular exam: PRESENT: normal capillary refill GI/Abdominal exam: PRESENT: normal bowel sounds, soft. ABSENT: distended, guarding, mass, organolmegaly, rebound, tenderness Rectal exam: PRESENT: deferred Extremities exam: PRESENT: joint swelling, pedal edema Musculoskeletal exam: PRESENT: other - Left knee: Effusion noted. No erythema. Mild tenderness on the joint lines. Knee range of motion 0-110 pain with terminal flexion. Edema noted distally. No calf tenderness. No evidence of skin breakdown or wounds. Neurological exam: PRESENT: alert, awake, oriented to person, oriented to place , oriented to time, oriented to situation, CN II-XII grossly intact. ABSENT: motor sensory deficit Psychiatric exam: PRESENT: appropriate affect, normal mood. ABSENT: homicidal ideation, suicidal ideation Skin exam: PRESENT: dry, intact, warm. ABSENT: cyanosis, rash Results Laboratory Results: 04/04/18 16:17 04/06/18 04:18 04/06/18 04/06/18 04:18 04:18 Sodium 140.1 Potassium 4.7 Chloride 100 Carbon Dioxide 25 Anion Gap 15 BUN 24 H Creatinine 1.83 H Est GFR ( Amer) 44 L Est GFR (Non-Af Amer) 36 L Glucose 100 Calcium 9.5 TSH 1.49 Free T4 1.44 Free T3 pg/mL 3.24 04/04/18 04/04/18 04/05/18 16:17 16:17 00:18 Creatine Kinase 146 127 CK-MB (CK-2) 1.48 Troponin I < 0.012 NT-Pro-B Natriuret Pep 85 04/05/18 04/05/18 04/05/18 00:18 08:50 08:50 Creatine Kinase 94 CK-MB (CK-2) 1.41 1.29 Troponin I < 0.012 < 0.012 NT-Pro-B Natriuret Pep Impressions: Chest X-Ray 04/04/18 00:00 IMPRESSION: Borderline cardiomegaly without CHF. Lower Extremity CT 04/05/18 00:00 IMPRESSION: Joint effusion. Mild degenerative changes. Status: Image reviewed by me - I have reviewed patient's CT scan results which demonstrate mild degenerative changes of the left knee with evidence of intra- articular effusion. Assessment & Plan - Diagnosis (1) Effusion, left knee Is this a current diagnosis for this admission?: Yes Plan: Patient has findings of the left knee effusion. Today we discussed treatment options and decision was made to proceed with aspiration. Left knee was prepped with Betadine and verbal consent was obtained. 18-gauge needle was placed through the suprapatellar region medially obtaining 30 cc of yellow appearing fluid no evidence of purulence. Patient tolerated procedure well. Fluid was sent for cell count with differential, cultures/sensitivity, Gram stain and crystals. Unlikely infectious in nature thus patient is stable for discharge to home would recommend follow-up as an outpatient.
--- NOTE | 2018-04-06 10:50 | PDOC DISCHARGE SUMMARY ---
General - Admit/Disc Date/PCP Admission Date/Primary Care Provider: 04/04/18 15:20 FLAQUITO LOCKE MD Discharge Date: 04/06/18 - Discharge Diagnosis (1) Bilateral lower extremity edema Is this a current diagnosis for this admission?: Yes (2) Effusion, left knee Is this a current diagnosis for this admission?: Yes (3) Chronic obstructive pulmonary disease Is this a current diagnosis for this admission?: Yes (4) Chronic kidney disease, stage 3 Is this a current diagnosis for this admission?: Yes (5) Diabetes mellitus Is this a current diagnosis for this admission?: Yes - Additional Information Prescriptions: Albuterol Sulfate [Proventil Hfa] 6.7 gm IH Q4 PRN #4 hfa.[email or web address] PRN Reason: Shortness Of Breath Fluticasone/Umeclidin/Vilanter [Trelegy Ellipta 100-62.5-25] 1 each IH DAILY #4 blst.w.dev Prednisone 40 mg PO DAILY #5 tablet Home Medications: Aspirin [Adult Low Dose Aspirin EC] 81 mg PO DAILY 04/16/17 Lisinopril/Hydrochlorothiazide [Zestoretic 20-25 mg Tablet] 1 tab PO DAILY 04/16 Metoprolol Tartrate [Lopressor 50 mg Tablet] 50 mg PO Q12 04/16/17 Simvastatin 40 mg PO DAILY 04/16/17 Glimepiride [Amaryl] 2 mg PO DAILY 04/04/18 Pramipexole Di-HCl [Pramipexole Dihydrochloride] 0.125 mg PO DAILY 04/04/18 Albuterol Sulfate [Proventil Hfa] 6.7 gm IH Q4 PRN #4 hfa.aer.ad 04/06/18 Fluticasone/Umeclidin/Vilanter [Trelegy Ellipta 100-62.5-25] 1 each IH DAILY #4 blst.w.dev 04/06/18 Prednisone 40 mg PO DAILY #5 tablet 04/06/18 History of Present Illness History of Present Illness: LORRAINE MAHAN is a 72 year old male, Patient was admitted for evaluation of lower extremity swelling and left knee arthropathy. He has underlining chronic obstructive pulmonary disease, chronic kidney disease, type 2 diabetes mellitus. Pulmonary hypertension was suspected as the etiology of the lower extremity edema, the urine protein creatinine ratio was normal, the liver function test was normal, a 2D echo was done today, showed preserved ejection fraction of left ventricle, the right ventricular systolic pressure could not be measured because of inadequate tricuspid regurgitation. Hospital Course Hospital Course: Patient was admitted for the management of bilateral lower extremity edema and left knee pain, pulmonary hypertension was suspected as etiology of the bilateral edema. 2D echo was done, it demonstrated normal ejection fraction of left ventricle, the right ventricular systolic pressure could not be measured because it was a poor study. He also have left knee arthropathy, CAT scan of the left knee was done, it demonstrated effusion of the left knee, he was seen in consultation by orthopedic, aspiration of the knee joint was done, gout was suspected, result pending. The transthoracic echocardiogram that was done could not confirm pulmonary hypertension, he may need right heart catheterization to invasively measure the pulmonary artery pressure. The urine protein creatinine ratio was normal, the liver function test was normal suggesting that the cause of his swelling is not nephrotic syndrome or liver disease. He has underlining COPD, he was discharged home on combination long- acting beta-2 agonist and long-acting anticholinergic and low dose glucocorticoid and also prednisone 40 mg p.o. daily for 5 days because of COPD exacerbation Physical Exam Vital Signs: Temp Pulse Resp BP Pulse Ox 97.3 F 72 19 108/55 L 96 04/06/18 07:57 04/06/18 07:57 04/06/18 07:57 04/06/18 07:57 04/06/18 07:57 Intake & Output 04/05/18 04/06/18 04/07/18 06:59 06:59 06:59 Intake Total 696 1501 Output Total 600 2500 Balance 96 -999 Weight 113.7 kg General appearance: PRESENT: no acute distress Head exam: PRESENT: atraumatic, normocephalic Eye exam: PRESENT: conjunctiva pink, EOMI, PERRLA Ear exam: PRESENT: normal external ear exam Mouth exam: PRESENT: moist, tongue midline Neck exam: PRESENT: full ROM Respiratory exam: PRESENT: wheezes Cardiovascular exam: PRESENT: RRR, +S1, +S2 Pulses: PRESENT: normal dorsalis pedis pul, +2 pedal pulses bilateral Vascular exam: PRESENT: normal capillary refill GI/Abdominal exam: PRESENT: normal bowel sounds, soft Rectal exam: PRESENT: deferred Neurological exam: PRESENT: alert, awake, oriented to person, oriented to place , oriented to time, oriented to situation, CN II-XII grossly intact Psychiatric exam: PRESENT: appropriate affect, normal mood Skin exam: PRESENT: dry, intact, warm Results Laboratory Results: 04/04/18 16:17 18 04:18 04/06/18 04/06/18 04:18 04:18 Sodium 140.1 Potassium 4.7 Chloride 100 Carbon Dioxide 25 Anion Gap 15 BUN 24 H Creatinine 1.83 H Est GFR ( Amer) 44 L Est GFR (Non-Af Amer) 36 L Glucose 100 Calcium 9.5 TSH 1.49 Free T4 1.44 Free T3 pg/mL 3.24 04/04/18 04/04/18 04/05/18 16:17 16:17 00:18 Creatine Kinase 146 127 CK-MB (CK-2) 1.48 Troponin I < 0.012 NT-Pro-B Natriuret Pep 85 04/05/18 04/05/18 04/05/18 00:18 08:50 08:50 Creatine Kinase 94 CK-MB (CK-2) 1.41 1.29 Troponin I < 0.012 < 0.012 NT-Pro-B Natriuret Pep Impressions: Chest X-Ray 04/04/18 00:00 IMPRESSION: Borderline cardiomegaly without CHF. Lower Extremity CT 04/05/18 00:00 IMPRESSION: Joint effusion. Mild degenerative changes. Qualifiers - * PATIENT BEING DISCHARGED WITH ANY OF THE FOLLOWING DIAGNOSIS: No
[2018-04-06 11:52] LABS: FLUID TYPE SYNOVIAL
[2018-04-06 11:53] LABS: FLUID SOURCE KNEE
[2018-04-06 11:54] LABS: FLUID APPEARANCE CLOUDY; FLUID COLOR YELLOW; FLUID VISCOSITY MODERATELY VISCOUS
[2018-04-06 12:30] LABS: CALCIUM PYROPHOSPHATE CRYSTALS NONE OBSERVED; MONOSODIUM URATE CRYSTALS Intra&Extracellular; OTHER CRYSTALS NONE OBSERVED
== END 2018-04-06 12:19 | disposition home or self-care (01) | DRG 565 ==
LOC: 5 15:20
PROVIDERS: ADMIT Internal Medicine; ATTEND Internal Medicine
PROC: 0SBD3ZX Excision of Left Knee Joint, Percutaneous Approach, Diagnostic (ICD-10-PCS; principal; 2018-04-06)
DX: M25.462 Effusion, left knee (principal); J44.1 Chronic obstructive pulmonary disease with (acute) exacerbation; E11.22 Type 2 diabetes mellitus with diabetic chronic kidney disease; I27.20 Pulmonary hypertension, unspecified; I12.9 Hypertensive chronic kidney disease with stage 1 through stage 4 chronic kidney disease, or unspecified chronic kidney disease; N18.3 Chronic kidney disease, stage 3 (moderate); M12.9 Arthropathy, unspecified; F17.210 Nicotine dependence, cigarettes, uncomplicated
CPT/HCPCS: 36415; 71045; 80048; 80076; 81001; 82550; 82553; 82570; 83880; 84156; 84439; 84443; 84481; 84484; 85025; 85379; 87070; 87075; 87205; 89050; 89060; 93005; 93010; 93306; J1940; J3490; J7050

== ENCOUNTER 2019-02-24 00:39 | Emergency (ER) | payer MEDICARE ==
[2019-02-24] MEDS ORDERED: ASPIRIN 81 MG TABLET, CHEWABLE PO ONE (00:56)
--- NOTE | 2019-02-24 02:14 | RADIOLOGY REPORT (SQ) ---
EXAM DESCRIPTION: XR CHEST 1 VIEW COMPLETED DATE/TME: 02/24/2019 00:57 CLINICAL HISTORY: 73 years, Male, CP COMPARISON: 04/04/2018 NUMBER OF VIEWS: One TECHNIQUE: AP view of the chest LIMITATIONS: None. FINDINGS: There are right basilar interstitial opacities. The heart is at the upper limit of normal in size. There is no pneumothorax or pleural effusion. There is no pneumothorax. IMPRESSION: Right basilar interstitial opacities, which may represent atelectasis or pneumonia copyright 2010 [employer]- All Rights Reserved
[2019-02-24 03:33] LABS: ABSOLUTE BASOPHILS # (AUTO) 0.1 10^3/uL (0.0-0.2); ABSOLUTE EOSINOPHILS # (AUTO) 0.5 10^3/uL (0.0-0.6); ABSOLUTE LYMPHOCYTES (AUTO) 2.3 10^3/uL (0.5-4.7); ABSOLUTE MONOCYTES (AUTO) 0.7 10^3/uL (0.1-1.4); ABSOLUTE NEUT (AUTO) 4.3 10^3/uL (1.7-8.2); BASOPHILS % (AUTO) 0.7 % (0-2); EOSINOPHILS % (AUTO) 6.6 % (0-6); HEMATOCRIT 39.9 % (37.9-51.0); LYMPHOCYTES % (AUTO) 28.8 % (13-45); MEAN CORPUSCULAR HEMOGLOBIN 29.3 pg (27.0-33.4); MEAN CORPUSCULAR HGB CONC 32.5 g/dL (32.0-36.0); MEAN CORPUSCULAR VOLUME 90 fl (80-97); MONOCYTES % (AUTO) 9.1 % (3-13); PLATELET COUNT 246 10^3/uL (150-450); RED BLOOD COUNT 4.43 10^6/uL (4.35-5.55); RED CELL DISTRIBUTION WIDTH 15.5 % (11.5-14.0); SEGMENTED NEUTROPHILS % (AUTO) 54.8 % (42-78); TOTAL CELLS COUNTED % (AUTO) 100 %; WHITE BLOOD COUNT 7.9 10^3/uL (4.0-10.5)
[2019-02-24 03:37] LABS: ALANINE AMINOTRANSFERASE 22 U/L (21-72); ALKALINE PHOSPHATASE 72 U/L (38-126); ANION GAP 13 (5-19); ASPARTATE AMINO TRANSFERASE 20 U/L (17-59); BILIRUBIN,DIRECT 0.3 mg/dL (0.0-0.4); BILIRUBIN,TOTAL 0.3 mg/dL (0.2-1.3); BLOOD UREA NITROGEN 20 mg/dL (7-20); CALCIUM 9.6 mg/dL (8.4-10.2); CARBON DIOXIDE 28 mmol/L (22-30); CHLORIDE 104 mmol/L (98-107); CREATINE KINASE 83 U/L (55-170); GLUCOSE 109 mg/dL (75-110); POTASSIUM 4.2 mmol/L (3.6-5.0); SODIUM 144.6 mmol/L (137-145); TOTAL PROTEIN 7.6 g/dL (6.3-8.2)
[2019-02-24 03:49] LABS: CREATINE KINASE MB 1.15 ng/mL (<4.55); TROPONIN I < 0.012 ng/mL
--- NOTE | 2019-02-24 06:56 | ER Document Report ---
ED Cardiac - General Chief Complaint: Chest Pain > 30 Stated Complaint: CHEST PAIN Time Seen by Provider: 02/24/19 06:48 Primary Care Provider: FLAQUITO LOCKE MD [Primary Care Provider] - Follow up tomorrow Notes: 73-year-old male the emergency room chief complaint of chest pain shortness of breath for 2 weeks. States that he has been coughing and having some wheezing. Has an appointment tomorrow with his primary care doctor but felt like he was getting worse so wanted to come in for an evaluation. Has had a blood clot in the past. Denies any pain in the legs at this time. Denies any coughing up of blood. Has not been on any antibiotics recently. TRAVEL OUTSIDE OF THE [place] IN LAST 30 DAYS: No - HPI Patient complains to provider of: Chest pain, Chest tightness, Shortness of breath Quality of pain: Intermittent - Related Data Allergies/Adverse Reactions: No Known Allergies Allergy (Verified 07/03/15 10:19) Past Medical History - General Information source: Patient - Social History Smoking Status: Unknown if Ever Smoked Frequency of alcohol use: None Drug Abuse: None Lives with: Family Family History: Reviewed & Not Pertinent Patient has suicidal ideation: No Patient has homicidal ideation: No - Past Medical History Cardiac Medical History: Reports: Hx Hypertension, Hx Peripheral Vascular Disease Pulmonary Medical History: Reports: Hx COPD Neurological Medical History: Denies: Hx Cerebrovascular Accident Endocrine Medical History: Reports: Hx Diabetes Mellitus Type 2 Renal/ Medical History: Denies: Hx Peritoneal Dialysis Musculoskeletal Medical History: Reports Hx Arthritis - Immunizations Hx Diphtheria, Pertussis, Tetanus Vaccination: No Hx Pneumococcal Vaccination: 09/23/15 Review of Systems - Review of Systems Notes: Constitutional: denies: Chills, Diaphoresis, Fever, Malaise, Weakness EENT: denies: Eye discharge, Blurred vision, Tearing, Double vision, Nose congestion, Nose discharge, Throat swelling, Mouth pain Cardiovascular: denies: Palpitations, Heart racing, Orthopnea,+ Dyspnea, +Chest pain Respiratory: denies: Cough, Hurts to breathe, Wheezing,+ Shortness of breath Gastrointestinal: denies: Abdominal pain, Diarrhea, Nausea, Vomiting, Black stools, bright red blood in stool Genitourinary: denies: Burning, Dysuria, Discharge, Frequency, Flank pain, Hematuria Musculoskeletal: denies: Joint pain, Joint swelling, Muscle pain, Muscle stiffness, back pain Hematologic/Lymphatic: denies: Anemia, Easy bleeding, Easy bruising, Blood clots Neurological/Psychological: denies: Confusion, Dementia, Depression, Loss of consciousness Skin: No lesions, no masses, no skin breakdown, no abscesses Physical Exam - Vital signs Vitals: Temp Pulse Resp BP Pulse Ox 97.7 F 69 18 141/71 H 98 02/24/19 01:58 02/24/19 01:58 02/24/19 01:58 02/24/19 01:58 02/24/19 01:58 Interpretation: Normal - General General appearance: Appears well, Alert - HEENT Head: Normocephalic, Atraumatic Eyes: Normal Pupils: PERRL - Respiratory Respiratory status: No respiratory distress Chest status: Nontender Breath sounds: Nonproductive cough, Wheezing Chest palpation: Normal - Cardiovascular Rhythm: Regular Heart sounds: Normal auscultation Murmur: No - Abdominal Inspection: Normal Distension: No distension Bowel sounds: Normal Tenderness: Nontender Organomegaly: No organomegaly - Back Back: Normal, Nontender - Extremities General upper extremity: Normal inspection, Nontender, Normal color, Normal ROM, Normal temperature General lower extremity: Normal inspection, Nontender, Normal color, Normal ROM, Normal temperature, Normal weight bearing. No: Beltran's sign - Neurological Neuro grossly intact: Yes Cognition: Normal Orientation: AAOx4 [place] Coma Scale Eye Opening: Spontaneous [place] Coma Scale Verbal: Oriented [place] Coma Scale Motor: Obeys Commands [place] Coma Scale Total: 15 Speech: Normal Motor strength normal: LUE, RUE, LLE, RLE Sensory: Normal - Psychological Associated symptoms: Normal affect, Normal mood - Skin Skin Temperature: Warm Skin Moisture: Dry Skin Color: Normal Course - Re-evaluation Re-evalutation: 02/24/19 09:32 Based on patient's chest pain and shortness of breath for 2 weeks ordered a CTA to rule out PE. That was negative. Chest x-ray was concerning for possible infiltrate so was started on antibiotics. Will give steroids and breathing treatments. He has a follow-up appointment tomorrow. I believe patient is unlikely that he is having a cardiac event as troponin x2 is negative. At this time after treatments are complete we will discharge with outpatient follow-up. 02/24/19 10:40 Laboratory 02/24/19 02/24/19 02/24/19 02:49 02:49 02:49 WBC 7.9 RBC 4.43 Hgb 13.0 L Hct 39.9 MCV 90 MCH 29.3 MCHC 32.5 RDW 15.5 H Plt Count 246 Seg Neutrophils % 54.8 Lymphocytes % 28.8 Monocytes % 9.1 Eosinophils % 6.6 H Basophils % 0.7 Absolute Neutrophils 4.3 Absolute Lymphocytes 2.3 Absolute Monocytes 0.7 Absolute Eosinophils 0.5 Absolute Basophils 0.1 Sodium 144.6 Potassium 4.2 Chloride 104 Carbon Dioxide 28 Anion Gap 13 BUN 20 Creatinine 1.53 H Est GFR ( Amer) 54 L Est GFR (Non-Af Amer) 45 L Glucose 109 Calcium 9.6 Total Bilirubin 0.3 Direct Bilirubin 0.3 Neonat Total Bilirubin Not Reportable Neonat Direct Bilirubin Not Reportable Neonat Indirect Bili Not Reportable AST 20 ALT 22 Alkaline Phosphatase 72 Creatine Kinase 83 CK-MB (CK-2) 1.15 Troponin I < 0.012 Total Protein 7.6 Albumin 4.0 Lipase 02/24/19 02/24/19 04:48 04:48 WBC RBC Hgb Hct MCV MCH MCHC RDW Plt Count Seg Neutrophils % Lymphocytes % Monocytes % Eosinophils % Basophils % Absolute Neutrophils Absolute Lymphocytes Absolute Monocytes Absolute Eosinophils Absolute Basophils Sodium Potassium Chloride Carbon Dioxide Anion Gap BUN Creatinine Est GFR ( Amer) Est GFR (Non-Af Amer) Glucose Calcium Total Bilirubin Direct Bilirubin Neonat Total Bilirubin Neonat Direct Bilirubin Neonat Indirect Bili AST ALT Alkaline Phosphatase Creatine Kinase CK-MB (CK-2) Troponin I < 0.012 Total Protein Albumin Lipase 107.8 Chest X-Ray 02/24/19 00:57 IMPRESSION: Right basilar interstitial opacities, which may represent atelectasis or pneumonia copyright 2011 [employer]- All Rights Reserved Chest/Abdomen CTA 02/24/19 07:31 IMPRESSION: No PE. No acute findings. - Vital Signs Vital signs: Temp Pulse Resp BP Pulse Ox 98 F 68 18 142/81 H 95 02/24/19 04:42 02/24/19 04:42 02/24/19 09:05 02/24/19 08:01 02/24/19 09:05 - Laboratory Result Diagrams: 02/24/19 02:49 02/24/19 02:49 Laboratory results interpreted by me: 02/24/19 02/24/19 02:49 02:49 Hgb 13.0 L RDW 15.5 H Eosinophils % 6.6 H Creatinine 1.53 H Est GFR ( Amer) 54 L Est GFR (Non-Af Amer) 45 L - EKG Interpretation by Me EKG shows normal: Sinus rhythm, [place], Intervals, QRS Complexes, ST-T Waves Discharge - Discharge Clinical Impression: Bronchitis Condition: Good Disposition: HOME, SELF-CARE Instructions: Bronchitis With Bronchospasm (Wheezing) ([facility]) Additional Instructions: Your work-up today did not reveal that you were having a heart attack. It did suggest that you could have a mild infection in your lung. There was no blood clot found. It is very important that you follow-up with your primary care doctor for a repeat evaluation as soon as possible. It appears you have an appointment for tomorrow so please make an appointment to see your doctor soon as possible. In the event that your symptoms are getting worse please return immediately for repeat evaluation. Prescriptions: Cefdinir [Omnicef 300 mg Capsule] 1 cap PO BID 10 Days #20 capsule Prednisone [Deltasone 20 mg Tablet] 3 tab PO DAILY 3 Days #9 tablet Referrals: FLAQUITO LOCKE MD [Primary Care Provider] - Follow up tomorrow
[2019-02-24] MEDS ORDERED: IPRATROPIUM/ALBUTEROL 0.5-2.5 MG/3 ML AMPUL NEB ONE (07:31)
--- NOTE | 2019-02-24 08:03 | EKG REPORT ---
SEVERITY:- BORDERLINE ECG - SINUS RHYTHM PROBABLE LEFT ATRIAL ABNORMALITY : Confirmed by: Naman Walsh MD 24-Feb-2019 08:02:48
--- NOTE | 2019-02-24 09:24 | RADIOLOGY REPORT (SQ) ---
EXAM DESCRIPTION: CTA CHEST COMPLETED DATE/TIME: 02/24/2019 9:09 am REASON FOR STUDY: chest pain . sob COMPARISON: 04/15/2017 TECHNIQUE: CT scan of the chest performed using helical scanning technique with dynamic intravenous contrast injection. Images reviewed with lung, soft tissue and bone windows. Reconstructed coronal and sagittal MPR images reviewed. Additional 3 dimensional post-processing performed to develop Maximal Intensity Projection images (DE P). All images stored on PACS. All CT scanners at this facility use dose modulation, iterative reconstruction, and/or weight based d osing when appropriate to reduce radiation dose to as low as reasonably achievable (ALARA). [facility]: Dose Right [facility]: CareDose [facility]: Dose Right [facility]: Teradose 4D [facility]: [employer] CONTRAST TYPE AND DOSE: contrast/concentration: Isovue 300.00 mg/ml; Total Contrast Delivered: 86.0 ml; Total Saline Delivered: 90.0 ml Contrast bolus optimized for the pulmonary arteries. Not diagnostic for the aorta. RENAL FUNCTION: GFR > 60. RADIATION DOSE: CT Rad equipment meets quality standard of care and radiation dose reduction techniq ues were employed. CTDIvol: 31.0 - 35.3 mGy. DLP: 1332 mGy-cm. . LIMITATIONS: None. FINDINGS: LUNGS AND PLEURA: Paraseptal emphysema is stable. No masses, infiltrates, or pneumothorax . No pleural effusions or pleural calcifications. AORTA AND GREAT VESSELS: No aneurysm. Contrast bolus not optimized for the aorta. HEART: No pericardial effusion. PULMONARY ARTERIES: No emboli visualized in the main pulmonary arteries or the segmental branches. HILAR AND MEDIASTINAL STRUCTURES: No identified masses or abnormal nodes. HARDWARE: None in the chest. UPPER ABDOMEN: Cholelithiasis. Limited exam. THYROID AND OTHER SOFT TISSUES: No masses. No adenopathy. BONES: No acute or significant finding. 3D MIPS: Confirm above findings. OTHER: No other significant finding. IMPRESSION: No PE. No acute findings. COMMENT: Quality ID # [id number]: Final reports with documentation of one or more dose reduction techniques (e.g., Automated exposure control, adjustment of the mA and/or kV according to patient size, use of iterative reconstruction technique) TECHNICAL DOCUMENTATION: JOB ID: [id number] [employer] All Rights Reserved Reading location - IP/workstation name: [email or web address]
[2019-02-24] MEDS ORDERED: CEFTRIAXONE 1 GM/D5W RTU 1 GM/50 ML RTUPB IV ONE (09:30)
[2019-02-24] MEDS ORDERED: METHYLPREDNISOLONE INJ 125 MG/2 ML SDV IV ONE (09:30)
[2019-02-24] MEDS ORDERED: ALBUTEROL SULFATE HFA (90 MCG/PUFF) 8 GM MDI (1 MDI/ER DISP) IH ONE (09:44)
[2019-02-24 10:59] VITALS: BP 142/70
== END 2019-02-24 11:00 | disposition home or self-care (01) ==
LOC: ER 00:39
DX: J20.9 Acute bronchitis, unspecified (principal); J44.0 Chronic obstructive pulmonary disease with (acute) lower respiratory infection; R07.9 Chest pain, unspecified; R06.02 Shortness of breath; I10 Essential (primary) hypertension; E11.9 Type 2 diabetes mellitus without complications
CPT/HCPCS: 93005; 94640; 99285; 96375; 96365; 36415; 82553; 82550; 83690; 85025; 80053; 84484; 71045; 71275; 93010; J2930; J0696; J3490; A9270; J7620

== ENCOUNTER → 2019-02-25 | Outpatient (CLI) | payer MEDICARE ==
--- NOTE | 2019-02-25 10:38 | RADIOLOGY REPORT (SQ) ---
EXAM DESCRIPTION: U/S ABDOMEN LTD W/DOPPLER COMPLETED DATE/TIME: 02/25/2019 10:24 am REASON FOR STUDY: K80.20 CALCULUS OF GALLBLADDER W/O CHOLECYSTITIS W/O OBSTRUCTION K80.20 CALCULUS OF GALLBLADDER W/O CHOLECYSTITIS W/O OBSTRUC COMPARISON: None. TECHNIQUE: Dynamic and static grayscale images acquired of the abdomen and recorded on PACS. Additio nal selected color Doppler and spectral images recorded. LIMITATIONS: Limited visualization of some organ secondary to bowel gas. FINDINGS: PANCREAS: Limited visualization. LIVER: Increased echogenicity. No focal lesions. Normal size. LIVER VASCULATURE: Normal directional flow of the main portal vein and hepatic veins. GALLBLADDER: Limited visualization. Cholelithiasis. Decompressed gallbladder with wall measuring up to 5 mm. ULTRASOUND-DETECTED KLEIN'S SIGN: Negative. INTRAHEPATIC DUCTS AND COMMON DUCT: CBD measures 8.6 mm, likely secondary to senescent change. No in trahepatic ductal dilation. INFERIOR VENA CAVA: Normal flow. AORTA: Aorta measures up to 2.7 cm proximally. RIGHT KIDNEY: Normal size measuring 9.5 cm. No hydronephrosis. No nephrolithiasis. PERITONEAL AND RIGHT PLEURAL SPACE: No ascites or effusions. OTHER: No other significant findings. IMPRESSION: 1. Cholelithiasis. Limited gallbladder visualization with questionable wall thickening likely secondary to decompressed gallbladder. Negative sonographic Klein's sign. 2. Hepatic steatosis. 3. Proximal aorta measures up to 2.7 cm. Follow-up as below. AAA Size: Follow-up Recommendation 2.6-2.9 cm Every 5 years* *Based upon the Society for Vascular Surgery Guidelines: J Vasc Surg. 2009 Jun;50(4 Suppl):S2-49 *For aortas of maximum diameter of 2.6-2.9 cm meeting the criteria for AAA (?1.5 x proximal normal se gment) TECHNICAL DOCUMENTATION: JOB ID: [id number]- All Rights Reserved Reading location - IP/workstation name: [email or web address]
== END ==
LOC: RAD 09:30
PROVIDERS: ATTEND Internal Medicine
DX: K80.20 Calculus of gallbladder without cholecystitis without obstruction (principal)
CPT/HCPCS: 76705; 93976

== ENCOUNTER → 2019-04-08 | Outpatient (CLI) | payer MEDICARE ==
[~2019-04-08] MED LIST: REGADENOSON INJ 0.4 MG/5 ML DISP.SYRIN IV ONE
--- NOTE | 2019-04-12 14:54 | DRAGON STRESS TEST REPORT ---
Intravenous Lexiscan Cardiolite stress test using single photon emmision computerized tomography. Date of procedure: 04/08/2019. Ordering Provider: Dr. Cooper. Patient's status: Out Patient. Indication: Chest pain. Coronary risk factors: Age, diabetes mellitus, hypertension, and dyslipidemia. Resting EKG: Sinus Rhythm. Within Normal Limits. Stress EKG: No changes of ischemia. The patient had no chest pain or discomfort, and there were no arrhythmias seen. Reason for termination: Protocol. Conclusions: Normal EKG and hemodynamic response to IV Lexiscan. Nuclear data: At rest the patient was given 14.58 millicuries of technetium 99m sestamibi injected intravenously. As per protocol rest non gated SPECT images were obtained. Subsequently the patient was given intravenous Lexiscan at a dose of 0.4 mg in 5 mL intravenously, followed by flush with normal saline. Subsequently the stress dose of 45.0 millicuries of technetium 99m sestamibi was injected intravenously. As per protocol stress gated images were obtained. Nuclear interpretation: Review of images showed that all segments of the myocardium had normal perfusion at rest, and normal perfusion post stress with IV Lexiscan. All segments of the myocardium had normal motion, contraction, and thickening by gated study. T. I D. ratio was normal at 1.18. There is no transient ischemic dilatation of the left ventricle. Computer read rest, and stress left ventricular ejection fraction were 60 %, and T5 %, respectively. Conclusion: 1. There is no scintigraphic evidence of Lexiscan induced myocardial ischemia. 2. There is no scintigraphic evidence of myocardial infarction/scar. Recommendations: Aggressive risk factor modification, and treating the underlying co- morbidities. MTDD
== END ==
LOC: RAD 06:40
PROVIDERS: ATTEND Internal Medicine
DX: R07.9 Chest pain, unspecified (principal); I10 Essential (primary) hypertension; E11.9 Type 2 diabetes mellitus without complications; E78.5 Hyperlipidemia, unspecified
CPT/HCPCS: 93017; 78452; A9500; J2785; Q9969

== ENCOUNTER → 2019-05-18 | Outpatient (CLI) | payer MEDICARE ==
--- NOTE | 2019-05-18 12:54 | RADIOLOGY REPORT (SQ) ---
EXAM DESCRIPTION: CT ABDOMEN ORAL CONTRAST ONLY COMPLETED DATE/TIME: 05/18/2019 8:16 am REASON FOR STUDY: ASYMPTOMATIC GALLSTONES (K80.20) K80.20 CALCULUS OF GALLBLADDER W/O CHOLECYSTITIS W/O OBSTRUC COMPARISON: None. TECHNIQUE: CT scan of the abdomen performed without intravenous contrast and with oral contrast. Im ages reviewed with lung, soft tissue, and bone windows. Reconstructed coronal and sagittal MPR image s reviewed. All images stored on PACS. All CT scanners at this facility use dose modulation, iterative reconstruction, and/or weight based d osing when appropriate to reduce radiation dose to as low as reasonably achievable (ALARA). [facility]: Dose Right [facility]: CareDose [facility]: Dose Right [facility]: Teradose 4D [facility]: [employer] RADIATION DOSE: mGy. LIMITATIONS: None. FINDINGS: LOWER CHEST: See separate report of the CT of the chest. NONCONTRASTED LIVER, SPLEEN, ADRENALS: Evaluation limited by lack of IV contrast. No identified sign ificant masses. PANCREAS: No masses. No peripancreatic inflammatory changes. GALLBLADDER: Contracted gallbladder with multiple small stones. No ductal dilatation. RIGHT KIDNEY AND URETER: No suspicious masses. Assessment limited by lack of IV contrast. No signif icant calcifications. No hydronephrosis or hydroureter. LEFT KIDNEY AND URETER: No solid masses. There is a 45 mm cyst. No significant calcifications. N o hydronephrosis or hydroureter. AORTA AND RETROPERITONEUM: No aneurysm. No retroperitoneal masses or adenopathy. BOWEL AND PERITONEAL CAVITY: No obvious masses or inflammatory changes. No free fluid. APPENDIX: Normal. ABDOMINAL WALL: No abdominal wall hernias. BONES: No significant findings. OTHER: No other significant finding. IMPRESSION: Cholelithiasis with no evidence of acute cholecystitis. No ductal dilatation. TECHNICAL DOCUMENTATION: JOB ID: [id number] Quality ID # [id number]: Final reports with documentation of one or more dose reduction techniques (e.g., Au tomated exposure control, adjustment of the mA and/or kV according to patient size, use of iterative reconstruction technique) 2010 [employer]- All Rights Reserved Reading location - IP/workstation name: [email or web address]
--- NOTE | 2019-05-18 13:30 | RADIOLOGY REPORT (SQ) ---
EXAM DESCRIPTION: CT CHEST WITHOUT COMPLETED DATE/TIME: 05/18/2019 8:14 am REASON FOR STUDY: ASYMPTOMATIC GALLSTONES (K80.20) K80.20 CALCULUS OF GALLBLADDER W/O CHOLECYSTITIS W/O OBSTRUC COMPARISON: 02/24/2019 TECHNIQUE: CT scan performed of the chest without intravenous contrast. Images reviewed with lung, soft tissue and bone windows. Reconstructed coronal and sagittal MPR images reviewed. All images st ored on PACS. All CT scanners at this facility use dose modulation, iterative reconstruction, and/or weight based d osing when appropriate to reduce radiation dose to as low as reasonably achievable (ALARA). [facility]: Dose Right [facility]: CareDose [facility]: Dose Right [facility]: Teradose 4D [facility]: [employer] RADIATION DOSE: CT Rad equipment meets quality standard of care and radiation dose reduction techniq ues were employed. CTDIvol: 20.0 - 27.3 mGy. DLP: 1795 mGy-cm. mGy. LIMITATIONS: No technical limitations. FINDINGS: LUNGS AND PLEURA: Paraseptal emphysematous changes in the upper lobes, right more than lef t. No pulmonary infiltrate or mass. No pleural effusion. HILAR AND MEDIASTINAL STRUCTURES: No identified masses or abnormal nodes. No obvious aneurysm. HEART AND VASCULAR STRUCTURES: No aneurysm. No pericardial effusion. UPPER ABDOMEN: See separate report of the CT of the abdomen. THYROID AND OTHER SOFT TISSUES: No masses. No adenopathy. BONES: No significant finding. HARDWARE: None in the chest. OTHER: No other significant findings. IMPRESSION: Pulmonary emphysema. No acute findings. TECHNICAL DOCUMENTATION: JOB ID: [id number] Quality ID # [id number]: Final reports with documentation of one or more dose reduction techniques (e.g., Au tomated exposure control, adjustment of the mA and/or kV according to patient size, use of iterative reconstruction technique) 2010 [employer]- All Rights Reserved Reading location - IP/workstation name: [email or web address]
== END ==
LOC: RAD 07:13
PROVIDERS: ATTEND Surgery
DX: K80.20 Calculus of gallbladder without cholecystitis without obstruction (principal); J44.9 Chronic obstructive pulmonary disease, unspecified; R07.9 Chest pain, unspecified
CPT/HCPCS: 71250; 74150

== ENCOUNTER → 2020-04-04 | Outpatient (CLI) | payer MEDICARE ==
--- NOTE | 2020-04-04 16:19 | RADIOLOGY REPORT (SQ) ---
EXAM DESCRIPTION: U/S RETROPERITON (RENAL/AORTA) IMAGES COMPLETED DATE/TIME: 04/04/2020 3:38 pm REASON FOR STUDY: N18.3 CHRONIC KIDNEY DISEASE, STAGE 3 (MODERATE) N18.3 CHRONIC KIDNEY DISEASE, ST AGE 1 (MODERATE) COMPARISON: CT abdomen dated 05/18/2019 TECHNIQUE: Dynamic and static grayscale images acquired of the kidneys and bladder and recorded on P ACS. Additional selected color Doppler and spectral images recorded. LIMITATIONS: None. FINDINGS: RIGHT KIDNEY: The right kidney measures 9 cm in length. Normal echogenicity. No masses. No hydronephrosis. No stones. LEFT KIDNEY: The left kidney measures 10.2 cm in length. There is a 5.8 x 4.9 x 4.6 cm cyst off the anterior inferior pole. This is stable from prior CT. No hydronephrosis or suspicious masses. No stones. BLADDER: No masses. OTHER FINDINGS: No other significant finding. IMPRESSION: Left renal cyst. No other significant findings. TECHNICAL DOCUMENTATION: JOB ID: [id number] 2010 [employer]- All Rights Reserved Reading location - IP/workstation name: [email or web address]
== END ==
LOC: RAD 14:55
PROVIDERS: ATTEND Internal Medicine Nephrology
DX: N18.3 Chronic kidney disease, stage 3 (moderate) (principal); N28.1 Cyst of kidney, acquired
CPT/HCPCS: 76770

== ENCOUNTER → 2020-06-29 | Outpatient (CLI) | payer MEDICARE ==
--- NOTE | 2020-06-29 12:53 | RADIOLOGY REPORT (SQ) ---
EXAM DESCRIPTION: ANKLE RIGHT AP/LATERAL IMAGES COMPLETED DATE/TIME: 06/29/2020 10:36 am REASON FOR STUDY: PAIN IN RIGHT ANKLE AND JOINTS OF RIGHT FOOT M25.571 PAIN IN RIGHT ANKLE AND JOIN TS OF RIGHT FOOT COMPARISON: None. NUMBER OF VIEWS: Three views. TECHNIQUE: AP, lateral, and oblique radiographic images acquired of the right ankle. LIMITATIONS: None. FINDINGS: MINERALIZATION: Normal. BONES: No fracture or dislocation. Plantar and posterior calcaneal spurs are present. JOINTS: No effusions. SOFT TISSUES: No soft tissue swelling. No foreign body. OTHER: No other significant finding. IMPRESSION: Calcaneal spurs. No acute finding in the ankle. TECHNICAL DOCUMENTATION: JOB ID: [id number] 2010 [employer]- All Rights Reserved Reading location - IP/workstation name: [email or web address]
== END ==
LOC: OD 10:23
PROVIDERS: ATTEND Internal Medicine
DX: M25.571 Pain in right ankle and joints of right foot (principal)